=== PATIENT | female | born 1985 | race Caucasian/White ===

== ENCOUNTER 2018-03-10 09:33 | Day surgery (SDC) | payer OTHER ==
[2018-03-07 15:31] LABS: Urine Appearance CLEAR; Urine Bilirubin NEGATIVE (NEG); Urine Blood NEGATIVE (NEG); Urine Color YELLOW; Urine Glucose NEGATIVE (NEG); Urine Protein NEGATIVE (NEG); Urine pH 5.5 (5.0-7.0)
[2018-03-07 15:33] LABS: Absolute Lymphocytes (CBC) 2.3 K/uL (0.7-4.9); Absolute Monocytes 0.4 K/uL (0.1-1.3); Absolute Neutrophil 3.6 K/uL (1.8-8.0); Basophils % 0.8 % (0-1.3); Eosinophils % 0.8 % (0-4.4); Hematocrit 36.4 % (36.0-45.0); Lymphocytes % 35.9 % (15.3-44.8); MCH 30.4 pg (27.0-35.0); MCV 89.7 fL (80-100); MPV 9.2 fL (7.6-11.3); Monocytes % 5.5 % (3.3-12.3); RBC Red Blood Cell Count 4.05 M/uL (3.86-4.86)
[2018-03-07 15:37] LABS: Urine Microscopic Reflex NO UMIC
--- OUTSIDE RECORDS SUMMARY | 2018-03-10 09:39 | XMS REPORT | Continuity of Care Document ---
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, UNSPECIFIED" TIA Active [address] Arachnoid cyst Active Problem 05/07/2017 PADMINI Ed[place],[facility] Headache Active Problem 05/07/2017 OPID [place],[facility] Iron deficiency Active Problem 05/07/2017 OPID anemia [place],[facility] Multinodular Active Problem 05/07/2017 OPID thyroid [place],[facility] Cough Active Problem 05/07/2017 OPID [place],[facility] PFO (<span Active Problem 05/07/2017 [id number] [facility]Conf[facility]</spa [place] n>) [facility] Arachnoid cyst Active Problem 04/12/2017 OPID [place], [facility] [place] Headache Active Problem 04/12/2017 OPID [place], [facility] [place] Iron deficiency Active Problem 04/12/2017 OPID anemia [place], [facility] [place] Multinodular Active Problem 04/12/2017 OPID thyroid [place], [facility] [place] Cough Active Problem 04/12/2017 OPID [place], [facility] [place] PFO (<span Active Problem 04/12/2017 [facility] ID[facility][id number] [facility]Confirmed</spa OPID n>) [place] Arachnoid cyst Active Problem 05/22/2017 OPID [place],[facility] Headache Active Problem 05/22/2017 OPID [facility] Iron deficiency Active Problem 05/22/2017 OPID anemia [facility] Multinodular Active Problem 05/22/2017 OP[facility] thyroid [place] Cough Active Problem 05/22/2017 OPID [facility] PFO (<span Active Problem 05/22/2017 OPID ID="[id number] [place],Leta ">Confirmed</spa [facility] n>) OTHER SPECIFIED Active [facility] CONGENITAL Medical DEFORMITIES Center Medications Medication Details Route Status Patient Ordering Order Source Instructions Provider Date Oxycodone 5 mg, 1 tab, No Longer [facility] Route: PO, Drug Active 2016 Medical form: TAB, Q4H, Center Dosing Weight 57.273, kg, PRN Pain Score 4-6, Start date: 05/04/17 9:12:00 HEALTH PROMOTION OFFICER, Duration: 30 day, Stop date: 06/03/17 9:11:00 CSTNotes: (Same as: Roxicodone) Flumazenil 0.2 mg, 2 mL, No Longer [facility] Route: IVP, Drug Active 2016 Medical form: INJ, PRN, Center Dosing Weight 57.273, kg, PRN Benzodiazepine Reversal, Initial dose, Start date: 05/04/17 9:12:00 HEALTH PROMOTION OFFICER, Duration: 30 day, Stop date: 06/03/17 9:11:00 CSTNotes: (Same as: Romazicon) Ondansetron 4 mg, Route: Inactive 05/04[facility] IVP, ONCE, 2016 Medical Dosing Weight Center 57.273, kg, PRN Nausea & Vomiting, Start date: 05/04/17 9:12:00 HEALTH PROMOTION OFFICER Naloxone 0.4 mg, 1 mL, No Longer 05/04[facility] Route: IVP, Drug Active 2016 Medical form: INJ, Center Q2MIN, Dosing Weight 57.273, kg, PRN Narcotic Reversal, Start date: 05/04/17 9:12:00 HEALTH PROMOTION OFFICER, Duration: 8 doses or times, Stop date: Limited # of timesNotes: Same as Narcan Acetaminophen 1,000 mg, 2 tab, No Longer 05/04[facility] Route: PO, Drug Active 2016 Medical form: TAB, ONCE, Center Dosing Weight 57.273, kg, PRN Pain Score 1-3, Start date: 05/04/17 9:12:00 CSTNotes: Max acetaminophen 4000 mg/day (4 gm/day). (Same as: Tylenol Extra Strength) Ondansetron 4 MG 4 mg=1 tab, PO, Active [place] Oral Tablet Q6H, PRN 2017 Medical [Zofran] Nausea/Vomiting, Center # 30 tab, 0 Refill(s) tramadol 50 mg=1 tab, PO, Active [place] hydrochloride 50 Q6H, PRN Pain, X 2017 Medical MG Oral Tablet 10 day, # 40 Center tab, 0 Refill(s) Docusate Sodium 100 mg=1 cap, Active [place] 100 MG Oral PO, Daily, PRN 2017 Medical Capsule Constipation, # Center 20 cap, 0 Refill(s) ondansetron (ANES) Route: IV, Drug Inactive [place] form: INJ, ONCE, 2016 Medical Stop date: [place] 05/04/17 8:58:00 HEALTH PROMOTION OFFICER ceFAZolin (ANES) Route: IV, Drug Inactive [facility] form: INJ, ONCE, 2016 Medical Stop date: Center 05/04/17 8:58:00 HEALTH PROMOTION OFFICER Zofran 4 mg, 2 mL, No Longer [place] Route: IVP, Drug Active 2016 Medical form: INJ, Q8H, Center Dosing Weight 57.273, kg, PRN Nausea, Start date: 05/04/17 8:58:00 HEALTH PROMOTION OFFICER, Duration: 30 day, Stop date: 06/03/17 8:57:00 CSTNotes: (Same as: Zofran) MEDICATION WASTE Product Size: 4 mg Product Wasted: ___ mg Acetaminophen 325 2 tab, Route: No Longer [place] MG / Hydrocodone PO, Drug Form: Active 2016 Medical Bitartrate 5 MG TAB, Dosing Center Oral Tablet Weight 57.273, kg, Q4H, PRN Pain Score 4-6, Start date: 05/04/17 8:56:00 HEALTH PROMOTION OFFICER, Duration: 30 day, Stop date: 06/03/17 8:55:00 CSTNotes: (Same as: [place] 325/5) Do not exceed 4gm/day of acetaminophen. Hydromorphone 0.5 mg, Route: No Longer [place] IVP, Q4H, Dosing Active 2016 [facility] Weight 57.273, [place] kg, PRN Pain Score 4-6, Start date: 05/04/17 8:56:00 HEALTH PROMOTION OFFICER, Duration: 30 day, Stop date: 06/03/17 8:55:00 HEALTH PROMOTION OFFICER fentaNYL (ANES) Route: IV, Drug Inactive [place] form: INJ, ONCE, 2016 Medical Stop date: [place] 05/04/17 8:43:00 HEALTH PROMOTION OFFICER propofol (ANES) Route: IV, Drug Inactive [place] form: INJ, ONCE, 2016 Medical Stop date: [place] 05/04/17 8:43:00 HEALTH PROMOTION OFFICER lidocaine (ANES) Route: IV, Drug Inactive [place] form: INJ, ONCE, 2016 Medical Stop date: [place] 05/04/17 8:38:00 HEALTH PROMOTION OFFICER midazolam (ANES) Route: IV, Drug Inactive [place] form: SOLN, 2016 Medical ONCE, Stop date: [place] 05/04/17 8:13:00 HEALTH PROMOTION OFFICER propofol (ANES) 10 Route: IV, Drug Inactive [place] mg form: INJ, Start 2016 Medical date: 05/04/17 [place] 8:03:00 HEALTH PROMOTION OFFICER, Stop date: 05/04/17 9:03:00 HEALTH PROMOTION OFFICER Lactated Ringers Route: IV, Total Inactive [place] Injection IV Volume: 1,000, 2017 Medical (ANES) 1000 mL Start date: [place] 05/04/17 7:30:00 HEALTH PROMOTION OFFICER, Stop date: 05/04/17 8:30:00 HEALTH PROMOTION OFFICER ceFAZolin + 2 gm, Route: IV, No Longer [place] sterile water 20 PRE OP, Start Active 2016 Medical mL date: 05/04/17 [place] 2:00:00 HEALTH PROMOTION OFFICER, Duration: 30 day, Stop date: 06/03/17 1:59:00 HEALTH PROMOTION OFFICER, ABX Indication: Surgical ProphylaxisNotes : (Same As: Sugey Burr) MEDICATION WASTE Product Size: 1000 mg Product Wasted: ___ mg Docusate Sodium 100 mg=1 cap, Active [place] 100 MG Oral PO, BID, # 60 2016 [facility] Capsule [Colace] cap, 0 Refill(s) [place] tramadol 50 mg=1 tab, PO, No Longer [place] hydrochloride 50 Q8H, PRN Pain, # Active 2016 Medical MG Oral Tablet 60 tab, 0 Center Refill(s) [place] 5/325 oral 1 tab, PO, Q6H, Active [place] tablet # 60 tab, 0 2016 Medical Refill(s) Center influenza virus 0.5 mL, Route: No Longer [place] vaccine, IM, Daily, Start Active 2016 Medical inactivated date: 04/01/17 Center 9:00:00 CDT, Duration: 1 doses or times, Stop date: 04/01/17 9:00:00 CDT [place] 5/325 oral 1 tab, Route: No Longer [place] tablet PO, Drug Form: Active 2016 Medical TAB, Dosing Center Weight 61.818, kg, Q4H, Start date: 03/31/17 16:00:00 CDT, Duration: 30 day, Stop date: 04/30/17 12:00:00 CSTNotes: (Same as: [place] 325/5) Do not exceed 4gm/day of acetaminophen. heparin 5000 5,000 unit, 1 No Longer [place] units/mL mL, Route: Active 2016 [facility] injectable SUB-Q, Drug Center solution form: INJ, Q8H, Dosing Weight 61.818, kg, Start date: 03/31/17 16:00:00 CDT, Duration: 30 day, Stop date: 04/30/17 8:00:00 CSTNotes: porcine heparin acetaminophen-hydr 1 tab, PO, Q6H, No Longer [place] ocodone 325 mg-10 PRN Pain Score Active 2016 Medical mg oral tablet 4-6, # 60 tab, 0 Center Refill(s) Zofran 4 mg oral 4 mg=1 tab, PO, Active [place] tablet Q8H, PRN 2017 Medical Nausea/vomiting, Center # 30 tab, 0 Refill(s), Pharmacy: [facility]/pharmacy #[id number] senna 8.6 mg oral 17.2 mg=2 tab, Active [place] tablet PO, Bedtime, PRN 2017 Medical Constipation, X Center 10 day, # 20 tab, 0 Refill(s), Pharmacy: [facility]/pharmacy #[id number] magnesium citrate 8.725 eu=549 ml, Active [place] 1.745 g/30 mL oral PO, ONCE, if no 2017 Medical liquid bowel movement Center in couple days, # 300 ml, 0 Refill(s), Pharmacy: [facility]/pharmacy #[id number] Colace 100 mg oral 100 mg=1 cap, Active [place] capsule PO, BID, # 28 2017 Medical cap, 0 Center Refill(s), Pharmacy: [facility]/pharmacy #[id number] diazepam 5 mg oral 5 mg=1 tab, PO, Active [facility] tablet TID, PRN Spasm, 2017 Medical # 15 tab, 0 Center Refill(s) hydromorphone 0.2 mg, 0.1 mL, No Longer [facility] Route: IVP, Drug Active 2016 Medical form: INJ, Q3H, Center Dosing Weight 61.818, kg, PRN Pain Score 7-10, Start date: 03/31/17 10:13:00 CDT, Duration: 30 day, Stop date: 04/30/17 10:12:00 CSTNotes: Same as: Dilaudid Valium 5 mg, 1 tab, No Longer [place] Route: PO, Drug Active 2016 Medical form: TAB, TID, Center Dosing Weight 61.818, kg, PRN Spasm, Start date: 03/31/17 10:12:00 CDT, Duration: 30 day, Stop date: 04/30/17 10:11:00 CSTNotes: (Same as: Valium) hydromorphone 0.5 mg, 0.25 mL, Inactive [facility] Route: IV, Drug 2016 Medical form: INJ, ONCE, Center Dosing Weight 61.818, kg, Start date: 03/31/17 7:30:00 CDT, Stop date: 03/31/17 7:30:00 CDTNotes: Same as: Dilaudid Valium 5 mg, Route: IV, Inactive [place] ONCE, Dosing 2017 Medical Weight 61.818, Center kg, Start date: 03/31/17 6:58:00 CDT, Stop date: 03/31/17 6:58:00 CDT ceFAZolin (SCIP) + 2 gm, Route: No Longer [facility] sodium chloride IVPB, Drug form: Active 2017 Medical 0.9% INJ 100 mL INJ, ABXQ8H, Center Dosing Weight 61.818, kg, Start date: 03/30/17 22:00:00 CDT, Duration: 3 doses or times, Stop date: 03/31/17 14:00:00 CDT, ABX Indication: Surgical ProphylaxisNotes : (Same As: AncSugey nino) Cefazolin FOR IV SET ONLY MEDICATION WASTE Product Size: 1000 mg Product Wasted: _0__ mg Saline Flush 0.9% 10 ml, Route: No Longer [facility] IVP, Drug Form: Active 2017 Medical INJ, Dosing Center Weight 61.818, kg, Q12H, Start date: 03/30/17 21:00:00 CDT, Duration: 30 day, Stop date: 04/29/17 9:00:00 CSTNotes: (Same as: BD Posiflush) docusate 100 mg, 1 cap, No Longer [facility] Route: PO, Drug Active 2016 Medical form: CAP, Q12H, Center Dosing Weight 61.818, kg, Start date: 03/30/17 21:00:00 CDT, Duration: 30 day, Stop date: 04/29/17 9:00:00 CSTNotes: (Same as: Colace) senna 8.6 mg, 1 tab, No Longer [facility] Route: PO, Drug Active 2016 Medical Form: TAB, Center Dosing Weight 61.818, kg, Q12H, Start date: 03/30/17 21:00:00 CDT, Duration: 30 day, Stop date: 04/29/17 9:00:00 CSTNotes: (Same as: Senokot) metoclopramide 10 mg, 2 mL, No Longer [facility] Route: IVP, Drug Active 2016 Medical form: INJ, Q6H, Center Dosing Weight 61.818, kg, Start date: 03/30/17 18:00:00 CDT, Duration: 48 hr, Stop date: 04/01/17 12:00:00 CDTNotes: (Same as: Reglan) Saline Flush 0.9% 10 ml, Route: No Longer [place] IVP, Drug Form: Active 2016 Medical INJ, Dosing Center Weight 61.818, kg, PRN, PRN Line Flush, Start date: 03/30/17 17:42:00 CDT, Duration: 30 day, Stop date: 04/29/17 16:41:00 CSTNotes: (Same as: BD Posiflush) morphine Sulfate 2 mg, 0.5 mL, No Longer [place] Route: IVP, Drug Active 2016 Medical form: SOLN, Q2H, Center Dosing Weight 61.818, kg, PRN Pain Score 7-10, Start date: 03/30/17 17:42:00 CDT, Duration: 30 day, Stop date: 04/29/17 17:41:00 CSTNotes: (Same as:MORPhine Sulfate) acetaminophen-hydr 1 tab, Route: No Longer [place] ocodone 325 mg-10 PO, Drug Form: Active 2016 Medical mg oral tablet TAB, Dosing Center Weight 61.818, kg, Q4H, PRN Pain Score 4-6, Start date: 03/30/17 17:42:00 CDT, Duration: 30 day, Stop date: 04/29/17 17:41:00 CSTNotes: (Same as: [place] 325/10) ondansetron 4 mg, 2 mL, No Longer [place] Route: IVP, Drug Active 2016 Medical form: INJ, Q8H, Center Dosing Weight 61.818, kg, PRN Nausea & Vomiting, Start date: 03/30/17 17:42:00 CDT, Duration: 30 day, Stop date: 04/29/17 17:41:00 CSTNotes: (Same as: Zofran) MEDICATION WASTE Product Size: 4 mg Product Wasted: _0__ mg sodium chloride 1,000 mL, Rate: No Longer [place] 0.9% 1000 ml INJ 100 ml/hr, Active 2016 Medical 1,000 mL Infuse over: 10 Center hr, Route: IV, Dosing Weight 61.818 kg, Total Volume: 1,000, Start date: 03/30/17 17:42:00 CDT, Stop date: 04/29/17 17:41:00 HEALTH PROMOTION OFFICER hydromorphone Route: IV, Drug Inactive [facility] (ANES) form: INJ, ONCE, 2016 Medical Stop date: [place] 03/30/17 17:04:00 CDT ondansetron (ANES) Route: IV, Drug Inactive [place] form: INJ, ONCE, 2016 Medical Stop date: [place] 16:30:00 CDT famotidine (ANES) Route: IV, Drug Inactive [place] form: INJ, ONCE, 2016 Medical Stop date: [place] 16:30:00 CDT glycopyrrolate Route: IV, Drug Inactive [place] (ANES) form: INJ, ONCE, 2016 Medical Stop date: [place] 03/30/17 15:20:00 CDT ePHEDrine (ANES) Route: IV, Drug Inactive [place] form: INJ, ONCE, 2016 Medical Stop date: [place] 03/30/17 13:55:00 CDT ceFAZolin (ANES) Route: IV, Drug Inactive [place] form: INJ, ONCE, 2016 Medical Stop date: [place] 03/30/17 13:55:00 CDT propofol (ANES) Route: IV, Drug Inactive [facility] form: INJ, ONCE, 2016 Medical Stop date: [place] 03/30/17 13:25:00 CDT lidocaine (ANES) Route: IV, Drug Inactive [place] form: INJ, ONCE, 2016 Medical Stop date: [place] 03/30/17 13:25:00 CDT rocuronium (ANES) Route: IV, Drug Inactive [facility] form: INJ, ONCE, 2016 Medical Stop date: [place] 03/30/17 13:25:00 CDT fentaNYL (ANES) Route: IV, Drug Inactive [facility] form: INJ, ONCE, 2016 Medical Stop date: [place] 03/30/17 13:25:00 CDT ANES esmolol 10 mg, 1 mL, Inactive [facility] Route: IVP, Drug 2016 Medical form: INJ, Center Q5Min, Dosing Weight 61.818, kg, PRN Other -See Comment, Start date: 03/30/17 13:22:00 CDT, Duration: 5 doses or times, Stop date: 03/31/17 0:00:00 CDTNotes: (Same as: Brevibloc) ANES acetaminophen 1,000 mg, 2 tab, Inactive [facility] Route: PO, Drug 2016 Medical form: TAB, ONCE, Center Dosing Weight 61.818, kg, PRN Pain Score 1-3, Start date: 03/30/17 13:22:00 CDT, Duration: 1 doses or times, Stop date: Limited # of timesNotes: Max acetaminophen 4000 mg/day (4 gm/day). (Same as: Tylenol Extra Strength) ANES fentaNYL 25 microgram, Inactive [facility] 0.5 mL, Route: 2017 Medical IVP, Drug form: Center INJ, Q5Min, Dosing Weight 61.818, kg, PRN Pain Score 4-6, Priority: Routine, Start date: 03/30/17 13:22:00 CDT, Duration: 4 doses or times, Stop date: 03/31/17 0:00:00 CDTNotes: (Same as: Sublimaze) Preservative free. ANES HYDROmorphone 0.5 mg, 0.25 mL, Inactive [facility] Route: IVP, Drug 2016 Medical form: INJ, Center Q5Min, Dosing Weight 61.818, kg, PRN Pain Score 7-10, Start date: 03/30/17 13:22:00 CDT, Duration: 4 doses or times, Stop date: 03/31/17 0:00:00 CDTNotes: Same as: Dilaudid ANES flumazenil 0.2 mg, 2 mL, Inactive [facility] Route: IVP, Drug 2016 Medical form: INJ, PRN, Center Dosing Weight 61.818, kg, PRN Benzodiazepine Reversal, Initial dose, Start date: 03/30/17 13:22:00 CDT, Duration: 30 day, Stop date: 04/29/17 12:21:00 CSTNotes: (Same as: Romazicon) ANES naloxone 0.4 mg, 1 mL, Inactive [facility] Route: IVP, Drug 2016 Medical form: INJ, Center Q2MIN, Dosing Weight 61.818, kg, PRN Narcotic Reversal, Start date: 03/30/17 13:22:00 CDT, Duration: 8 doses or times, Stop date: 03/31/17 0:00:00 CDTNotes: Same as Narcan ANES ondansetron 4 mg, 2 mL, Inactive [facility] Route: IVP, Drug 2016 Medical form: INJ, ONCE, Center Dosing Weight 61.818, kg, PRN Nausea & Vomiting, Start date: 03/30/17 13:22:00 CDTNotes: (Same as: Zofran) MEDICATION WASTE Product Size: 4 mg Product Wasted: ___ mg ANES promethazine 6.25 mg, 0.25 Inactive [place] mL, Route: IVPB, 2016 Medical Drug form: INJ, Center ONCE, Dosing Weight 61.818, kg, PRN Nausea & Vomiting, Start date: 03/30/17 13:22:00 CDTNotes: Do not give IV push. (Same as: Phenergan) acetaminophen Route: IV, Drug Inactive [facility] (ANES) (ANES) form: INJ, Start 2016 Medical date: 03/30/17 Center 12:50:00 CDT, Stop date: 03/30/17 13:50:00 CDT Isolyte S (PH 7.4) Route: IV, Total Inactive [place] 1000 mL (ANES) Volume: 1,000, 2016 Medical Start date: [place] 03/30/17 12:49:00 CDT, Stop date: 03/30/17 13:49:00 CDT ceFAZolin 2 gm, 100 mL, No Longer [facility] Route: IVPB, Active 2016 Medical Drug form: INJ, Center PRE OP, Start date: 03/29/17 23:00:00 CDT, Duration: 1 day, Stop date: 03/30/17 22:59:00 CDT, ABX Indication: Surgical ProphylaxisNotes : Same as: Ancef Ondansetron 4 MG 4 mg=1 tab, PO, Active [place] Oral Tablet Q8H, # 60 tab, 0 2015 Medical [Zofran] Refill(s) Center Acetaminophen 300 1 tab, PO, Q4H, Inactive [place] MG / Codeine PRN for pain, # 2016 Medical Phosphate 30 MG 60 tab, 0 Center Oral Tablet Refill(s) [Tylenol with Codeine #3] Docusate Sodium 100 mg=1 cap, Active [place] 100 MG Oral PO, Q12H, # 30 2016 Medical Capsule cap, 0 Refill(s) Center tramadol 50 mg=1 tab, PO, Active [place] hydrochloride 50 Q4H, PRN Pain, X 2016 Medical MG Oral Tablet 10 day, # 60 Center tab, 0 Refill(s) Saline Flush 0.9% 10 ml, Route: No Longer [place] IVP, Drug Form: Active 2015 Medical INJ, Dosing Center Weight 59.091, kg, Q12H, Start date: 04/20/16 21:00:00 HEALTH PROMOTION OFFICER, Duration: 30 day, Stop date: 05/20/16 9:00:00 CSTNotes: (Same as: BD Posiflush) Famotidine 20 mg, 1 tab, No Longer Route: PO, Drug Active 2015 Medical form: TAB, Q12H, Center Dosing Weight 59.091, kg, Start date: 04/20/16 21:00:00 HEALTH PROMOTION OFFICER, Duration: 30 day, Stop date: 05/20/16 9:00:00 CSTNotes: (Same as: Pepcid) Docusate 100 mg, 1 cap, No Longer [place] Route: PO, Drug Active 2015 Medical form: CAP, Q12H, Center Dosing Weight 59.091, kg, Start date: 04/20/16 21:00:00 HEALTH PROMOTION OFFICER, Duration: 30 day, Stop date: 05/20/16 9:00:00 CSTNotes: (Same as: Colace) (Do Not Crush) sennosides, [facility] 8.6 mg, 1 tab, No Longer [place] Route: PO, Drug Active 2015 Medical Form: TAB, Center Dosing Weight 59.091, kg, Q12H, Start date: 04/20/16 21:00:00 HEALTH PROMOTION OFFICER, Duration: 30 day, Stop date: 05/20/16 9:00:00 CSTNotes: (Same as: Senokot) ceFAZolin (SCIP) 1 gm, Route: No Longer [place] IVPB, Drug form: Active 2016 Medical PDR/INJ, ABXQ8H, Center Dosing Weight 59.091, kg, Start date: 04/20/16 16:00:00 HEALTH PROMOTION OFFICER, Duration: 3 doses or times, Stop date: 04/21/16 8:00:00 CSTNotes: (Same As: Sugey Burr) MEDICATION WASTE Product Size: 1000 mg Product Wasted: ___ mg Acetaminophen 325 1 tab, Route: No Longer [place] MG / Hydrocodone PO, Drug Form: Active 2015 Medical Bitartrate 10 MG TAB, Dosing Center Oral Tablet [[place] Weight 59.091, 10/325] kg, Q4H, Start date: 04/20/16 12:00:00 HEALTH PROMOTION OFFICER, Duration: 30 day, Stop date: 05/20/16 8:00:00 CSTNotes: Do not exceed 4gm/day of acetaminophen. (Same as: [place] 325/10) Dexamethasone 4 mg, 1 tab, No Longer [place] Route: PO, Drug Active 2015 Medical form: TAB, Q6H, Center Dosing Weight 59.091, kg, Start date: 04/20/16 12:00:00 HEALTH PROMOTION OFFICER, Duration: 30 day, Stop date: 05/20/16 6:00:00 CSTNotes: Give with food. (Same As: Decadron) Dextrose 50% 25 gm, 50 mL, No Longer [facility] Syringe Route: IVP, Drug Active 2015 Medical Form: INJ, Center Dosing Weight 59.091, kg, PRN, PRN Abnormal Lab Result, Start date: 04/20/16 11:00:00 HEALTH PROMOTION OFFICER, Duration: 30 day, Stop date: 05/20/16 10:59:00 HEALTH PROMOTION OFFICER Regular Insulin, 7 unit, 0.07 mL, No Longer [place] Human 100 UNT/ML Route: SUB-Q, Active 2015 Medical Injectable Drug form: SOLN, Center Solution PRN, Dosing Weight 59.091, kg, PRN Abnormal Lab Result, Start date: 04/20/16 11:00:00 HEALTH PROMOTION OFFICER, Duration: 30 day, Stop date: 05/20/16 10:59:00 CSTNotes: (Same as: Humulin R) Roll in palms of hands gently; Do not shake vigorously. "single patient use only" (Restricted to patients requiring a dose > 60 units) WASTE: F/P - Black; E - Municipal Trash Bin Stable for 28 days at room temperature Expires in days from Da te Saline Flush 0.9% 10 ml, Route: No Longer [place] IVP, Drug Form: Active 2015 Medical INJ, Dosing Center Weight 59.091, kg, PRN, PRN Line Flush, Start date: 04/20/16 11:00:00 HEALTH PROMOTION OFFICER, Duration: 30 day, Stop date: 05/20/16 10:59:00 CSTNotes: (Same as: BD Posiflush) Dilaudid 0.5 mg, 0.25 mL, No Longer [place] Route: IV, Drug Active 2015 Medical form: INJ, Q3H, Center Dosing Weight 59.091, kg, PRN Pain Score 7-10, Start date: 04/20/16 11:00:00 HEALTH PROMOTION OFFICER, Duration: 30 day, Stop date: 05/20/16 10:59:00 CSTNotes: Same as Dilaudid Ondansetron 4 mg, 2 mL, No Longer [place] Route: IVP, Drug Active 2015 Medical form: INJ, Q8H, Center Dosing Weight 59.091, kg, PRN Nausea & Vomiting, Start date: 04/20/16 11:00:00 HEALTH PROMOTION OFFICER, Duration: 30 day, Stop date: 05/20/16 10:59:00 CSTNotes: (Same as: Noel) MEDICATION WASTE Product Size: 4 mg Product Wasted: ___ mg Metoclopramide 10 mg, 2 mL, No Longer [place] Route: IVP, Drug Active 2015 Medical form: INJ, Q6H, Center Dosing Weight 59.091, kg, PRN as needed for nausea/vomiting, Start date: 04/20/16 11:00:00 HEALTH PROMOTION OFFICER, Duration: 30 day, Stop date: 05/20/16 10:59:00 CSTNotes: (Same as: Reglan) Sodium Chloride 1,000 mL, Rate: No Longer [place] 0.154 MEQ/ML 50 ml/hr, Infuse Active 2015 Medical Injectable over: 20 hr, Center Solution Route: IV, Dosing Weight 59.091 kg, Total Volume: 1,000, Start date: 04/20/16 11:00:00 HEALTH PROMOTION OFFICER, Stop date: 05/20/16 10:59:00 HEALTH PROMOTION OFFICER Acetaminophen 325 1 tab, Route: No Longer [facility] MG / Hydrocodone PO, Drug Form: Active 2016 Medical Bitartrate 10 MG TAB, Dosing Center Oral Tablet Weight 59.091, kg, Q4H, PRN Pain Score 4-6, Start date: 04/20/16 11:00:00 HEALTH PROMOTION OFFICER, Duration: 30 day, Stop date: 05/20/16 10:59:00 CSTNotes: Do not exceed 4gm/day of acetaminophen. (Same as: [place] 325/10) Promethazine 6.25 mg, Route: Inactive [place] IVPB, ONCE, 2015 Medical Dosing Weight Center 57.727, kg, PRN Nausea & Vomiting, Start date: 04/20/16 7:17:00 HEALTH PROMOTION OFFICER Ondansetron 4 mg, 2 mL, Inactive [facility] Route: IVP, Drug 2015 Medical form: INJ, ONCE, Center Dosing Weight 57.727, kg, PRN Nausea & Vomiting, Start date: 04/20/16 7:17:00 CSTNotes: (Same as: Zofran) MEDICATION WASTE Product Size: 4 mg Product Wasted: ___ mg Flumazenil 0.2 mg, 2 mL, Inactive [facility] Route: IVP, Drug 2015 Medical form: INJ, PRN, Center Dosing Weight 57.727, kg, PRN Benzodiazepine Reversal, Initial dose, Start date: 04/20/16 7:17:00 HEALTH PROMOTION OFFICER, Duration: 30 day, Stop date: 05/20/16 7:16:00 CSTNotes: (Same as: Romazicon) Naloxone 0.4 mg, 1 mL, Inactive [facility] Route: IVP, Drug 2015 Medical form: INJ, Center Q2MIN, Dosing Weight 57.727, kg, PRN Narcotic Reversal, Start date: 04/20/16 7:17:00 HEALTH PROMOTION OFFICER, Duration: 8 doses or times, Stop date: 04/21/16 0:00:00 CSTNotes: Same as Narcan Ephedrine 5 mg, Route: Inactive [facility] IVP, Q5Min, 2015 Medical Dosing Weight Center 57.727, kg, PRN Low Blood Pressure, Start date: 04/20/16 7:17:00 HEALTH PROMOTION OFFICER, Duration: 30 day, Stop date: 05/20/16 7:16:00 HEALTH PROMOTION OFFICER Hydromorphone 0.5 mg, 0.25 mL, Inactive [facility] Route: IVP, Drug 2015 Medical form: INJ, Center Q5Min, Dosing Weight 57.727, kg, PRN Pain Score 7-10, Start date: 04/20/16 7:17:00 HE[employer]OMOTION OFFICER, Duration: 4 doses or times, Stop date: 04/21/16 0:00:00 CSTNotes: Same as Dilaudid Labetalol 10 mg, Route: Inactive [facility] IVP, Q5Min, 2015 Medical Dosing Weight Center 57.727, kg, PRN Elevated BP, Start date: 04/20/16 7:17:00 HEALTH PROMOTION OFFICER, Duration: 5 doses or times, Stop date: Limited # of times Metoprolol 1 mg, Route: Inactive [facility] IVP, Q5Min, 2015 Medical Dosing Weight Center 57.727, kg, PRN Other -See Comment, Start date: 04/20/16 7:17:00 HEALTH PROMOTION OFFICER, Duration: 5 doses or times, Stop date: Limited # of times esmolol 10 mg, Route: Inactive [facility] IVP, Q5Min, 2015 Medical Dosing Weight Center 57.727, kg, PRN Other -See Comment, Start date: 04/20/16 7:17:00 HEALTH PROMOTION OFFICER, Duration: 5 doses or times, Stop date: Limited # of times Hydralazine 10 mg, Route: Inactive [facility] IVP, Q20Min, 2015 Medical Dosing Weight Center 57.727, kg, PRN Elevated BP, Start date: 04/20/16 7:17:00 HEALTH PROMOTION OFFICER, Duration: 2 doses or times, Stop date: Limited # of times ceFAZolin 2 gm, 100 mL, Inactive [facility] Route: IVPB, 2015 Medical Drug form: INJ, Center PRE OP, Start date: 04/20/16 1:00:00 HEALTH PROMOTION OFFICER, Duration: 1 day, Stop date: 04/21/16 0:59:00 CSTNotes: Same as: Ancef Sulfamethoxazole 1 tab, PO, Q12H, Active Xavier 800 MG / X 3 day, # 6 2016 Medical Trimethoprim 160 tab, 0 Refill(s) Center MG Oral Tablet [Bactrim] Plavix 75 mg, 1 tab, Inactive [facility] Route: PO, Drug 2015 Medical form: TAB, Center Daily, Dosing Weight 59.091, kg, Start date: 03/24/16 9:00:00 CDT, Duration: 30 day, Stop date: 04/22/16 9:00:00 CSTNotes: (Same As: Plavix) Sodium Chloride 500 mL, 500 Inactive Xavier 0.154 MEQ/ML ml/hr, Infuse 2016 Medical Injectable Over: 1 hr, [place] Solution Route: IV, 500, Drug form: INJ, ONCE, Priority: STAT, Dosing Weight 59.091 kg, Start date: 03/24/16 7:00:00 CDT, Duration: 1 doses or times, Stop date: 03/24/16 7:00:00 CDT Aspirin 81 mg, 1 tab, No Longer [facility] Route: PO, Drug Active 2015 Medical form: ECTAB, Center Daily, kg, Start date: 03/23/16 17:00:00 CDT, Duration: 30 day, Stop date: 04/22/16 9:00:00 CSTNotes: Do not crush or chew. (Same As: Ecotrin) influenza virus 0.5 mL, Route: Inactive Xavier vaccine, IM, Drug Form: 2016 Medical inactivated SUSP, Daily, Center Start date: 03/23/16 9:00:00 CDT, Duration: 1 doses or times, Stop date: 03/23/16 9:00:00 CDTNotes: (Same as: Fluzone Quadrivalent, Fluarix Quadrivalent) For 3 years of age and older (0.5 mL IM) Shake well before use Saline Flush 0.9% 10 ml, Route: No Longer Xavier IVP, Drug Form: Active 2015 Medical INJ, kg, Q12H, Center Start date: 03/23/16 9:00:00 CDT, Duration: 30 day, Stop date: 04/21/16 21:00:00 CSTNotes: (Same as: BD Posiflush) Sulfamethoxazole 1 tab, Route: No Longer [place] 800 MG / PO, Drug Form: Active 2015 Medical Trimethoprim 160 TAB, Dosing Center MG Oral Tablet Weight 59.091, [Bactrim] kg, Q12H, Start date: 03/23/16 9:00:00 CDT, Duration: 3 day, Stop date: 03/25/16 21:00:00 CDTNotes: One DS tablet=trimethop rim 160mg + sulfamethoxazole 800 mg Dose based on trimethoprim component On empty stomach with a glass of water. 1 hr before meals (Same As: Bactrim DS, Septra DS) Ceftriaxone 1 gm, Route: No Longer [place] IVPB, Drug form: Active 2015 Medical PDR/INJ, Center [id number], Dosing Weight 59.091, kg, Start date: 03/23/16 7:00:00 CDT, Duration: 3 day, Stop date: 03/25/16 7:00:00 CDTNotes: (Same As: Rocephin). Use with 100 mL NS and infuse over 30 min MEDICATION WASTE Product Size: 1000 mg Product Wasted: ___ mg Ceftriaxone 1 gm, Route: Inactive [place] IVPB, Drug form: 2015 Medical PDR/INJ, Center [id number], Dosing Weight 59.091, kg, Start date: 03/23/16 6:10:00 CDT, Duration: 30 day, Stop date: 04/21/16 6:10:00 HEALTH PROMOTION OFFICER Tylenol 650 mg, 2 tab, No Longer [place] Route: PO, Drug Active 2015 Medical form: TAB, Q6H, Center Dosing Weight 59.091, kg, PRN Pain Score 1-3, Start date: 03/23/16 5:03:00 CDT, Duration: 30 day, Stop date: 04/22/16 5:02:00 CSTNotes: Do not exceed 4 gm/day. (Same as: Tylenol) Iron Chews 15 mg, PO, Active [place] Daily, 0 2015 Medical Refill(s) Center NuvaRing 1 ea, VAG, q4wk, Active [facility] 0 Refill(s) 2015 [facility] Iohexol 60 mL, Route: Inactive [place] IVP, Drug Form: 2015 Medical SOLN, Dosing Center Weight 59.091, kg, ONCALL, STAT, Start date: 03/23/16 2:41:00 CDT, Duration: 1 doses or times, Dose=2.2ml/kg, Max iwhr=217mc -- "To be infused by Radiology Staff ONLY" Iohexol 60 mL, Route: Inactive [place] [facility], [facility] Weight 59.091, kg, ONCALL, STAT, Start date: 03/23/16 1:42:00 CDT, Duration: 1 doses or times, Dose=2.2ml/kg, Max btcz=[id number] -- "To be infused by Radiology Staff ONLY"Notes: (same as:Omnipaque 350). WASTE: F/P - Black; E - [employer] Aspirin 81 mg, 1 tab, No Longer [place] Route: PO, Drug Active 2015 Medical form: [place], [place] ONCE, kg, Start date: 03/22/16 23:41:00 CDT, Stop date: 03/22/16 23:41:00 CDTNotes: Take with food. Saline Flush 0.9% 10 ml, Route: No Longer [place] IVP, Drug Form: Active 2015 Medical INJ, kg, PRN, [place] PRN Line Flush, Start date: 03/22/16 22:39:00 CDT, Duration: 30 day, Stop date: 04/21/16 21:38:00 CSTNotes: (Same as: BD Posiflush) Allergies, Adverse Reactions, Alerts Substance Category Reaction Severity Reaction Status Date Comments Source type Reported codeine Assertion Drug Active [facility] allergy Neuro NSAIDs Assertion Acetaminoph Drug Active [facility]ischer en/Codeine allergy Neuro Phosphate,1 20 MG/5 ML-12 MG/5 ML,Oral (systemic), elixir, Acetaminoph en/Codeine Phosphate,1 20 MG/5 ML-12 MG/5 ML,Oral (systemic), elixir, Acetaminoph en/Codeine Phosphate,1 20 MG/5 ML-12 MG/5 ML,Oral (systemic), elixir, Acetaminoph en/Codeine Phosphate,1 20 MG/5 ML-12 MG/5 ML,Oral (systemic), elixir, Acetaminoph en/Codeine Phosphate,1 20 MG/5 ML-12 MG/5 ML,Oral (systemic), elixir, Acetaminoph en/Codeine Phosphate,1 20 MG/5 ML-12 MG/5 ML,Oral (systemic), elixir, Acetaminoph en/Codeine Phosphate,1 20 MG/5 ML-12 MG/5 ML,Oral (systemic), elixir, Acetaminoph en/Codeine Phosphate,1 20 MG/5 ML-12 MG/5 ML,Oral (systemic), elixir, Acetaminoph en/Codeine Phosphate,1 20 MG/5 ML-12 MG/5 ML,Oral (systemic), elixir, Acetaminoph en/Codeine Phosphate,1 20 MG/5 ML-12 MG/5 ML,Oral (systemic), elixir Immunizations Immunization Date Site Status Last Comments Source Given Updated influenza virus Right completed [place] OPID vaccine, 6 deltoid [place], inactivated [facility] influenza virus Right completed [place] OPID vaccine, 6 deltoid [place], inactivated OP[facility] [place] influenza virus Right completed [place] OPID vaccine, 6 deltoid [place], inactivated [facility] [place],Misc her Neuro Results Order Name Results Value Reference Date Interpretation Comments Source Range Brain w/wo Brain w/wo Patient Name: SUDHEER REYES 01/18 - OPID contrast contrast MRI /2017 - [place] [facility] : 1985; Age: 32 years y/o Female [place] MR: [id number] Read by: Jay Pope MD Dictated Date/time: 01/18/18 16:57 Electronically Signed by: Jay Pope MD 01/18/18 17:11 FINAL REPORT Study: Brain w/wo contrast MRI 01/18/2018 10:21 AM CDT Ordering Physician: Dell Josue MD Clinical Indication: - arachnoid cyst; Comparison: February 24, 2017 MRI and April 09, 2017 CT TECHNIQUE : Multiplanar imaging of the brain was obtained both prior to and after uncomplicated IV administration of 13 cc Dotarem FINDINGS: Sec Accountant artifact related to the shunt pontine the right occipital area limits evaluation, especially on diffusion-weighted and gradient echo images. BRAIN PARENCHYMA: Cerebellar tonsillar ectopia measures up to 7 mm consistent with Chiari I malformation. The difference compared to prior exam is probably related to changes in sequence Nguyen on the s agittal images. Right CP angle extra-axial fluid collection possibly due to an arachnoid cyst has not significantly changed, this measures approximately 3.6 x 1.9 cm in maximal axial dimensions. Minimal anterior bowing of cranial nerves VII and VIII cisternal portion again noted. The right suboccipital shunt catheter is better seen on CT, with the tip in the right infratentorial region transversely ov er the top of the presumed arachnoid cyst.. The brain parenchyma has normal signal with normal luo-white junction, sulci, and gyri. No restricted diffusion is identified. There is no mass effect or midline shift. There is no extra-axial fluid collection or intraparenchymal hemorrhage. There is no abnormal enhancement. CEREBELLOPONTINE REGIONS AND SKULL BASE significant: The cerebellopontine angles appear unremarkable. No skull base abnormality is seen. VENTRICLES/SULCI/CISTERNS: The ventricles are otherwise normal in size and configuration. The basal cisterns are patent. VISUALIZED VESSELS: Major intracranial flow voids are preserved. ORBITS, VISUALIZED PARANASAL SINUSES AND MASTOIDS: Paranasal sinuses are clear. The mastoid air cells are clear. No orbital pathology is seen. Severe leftward nasal spurring of 8 mm contacts and remod els the left middle and inferior turbinate. This is a potential source of headaches in some patients. 01/18/2018 IMPRESSION: 1. The degree of cerebellar tonsillar ectopia appears greater in today's exam though this is probably related to technical differences with the prior study. On today's exam, there appears to be Chiari I malformation. 2. Otherwise grossly stable exam, including right CP angle arachnoid cyst with right posterior fossa ventriculostomy catheter. 3. Severe nasal septal spurring is potential source of headaches. Brain wo Brain wo Study: Brain wo contrast CT 04/09 - OPID contrast CT contrast CT /2016 [facility] Clinical Indication: - cerebral cyst Read by: Mil Johnson MD Dictated Date/time: 04/09/17 14:30 Electronically Signed by: Mil Johnson MD 04/09/17 14:35 FINAL REPORT Comparison: MRI of the brain from 02/24/2017, 06/02/2016, 03/31/2016. CT of the brain from 07/22/2016. TECHNIQUE: Multiple axial CT images of the brain were acquired without the administration of intravenous contrast. Coronal and sagittal reconstructions were obtained. CT radiation dose DLP: 974.94 mGy-cm FINDINGS: Postoperative changes of right retrosigmoid craniotomy are seen with interval placement of a new ventriculostomy catheter with tip terminating along the region of the right cerebellopontine angle. Again noted is CSF attenuation fluid along the right cerebellopontine angle cistern measuring 1.8 x 4 cm axial dimension, grossly stable. Cerebellar tonsils at the level of the foramen magnum are again noted . No acute intracranial hemorrhage or midline shift is seen. The visualized paranasal sinuses and mastoid air cells are well aerated. IMPRESSION: 1. Postoperative changes of right retrosigmoid craniotomy and placement of a new ventriculostomy catheter with tip terminating along the region of the right cerebellopontine angle. 2. Stable appearance of a CSF attenuation fluid collection along the right cerebellopontine angle cistern measuring 1.8 x 4 cm axial dimension. 3. No acute intracranial hemorrhage. SL: [id number] BLOOD BANK Antibody Negative 03/30 [facility] RESULTS Scr [facility] (03/30/17 11:37 AM) [place] BLOOD BANK ABO/Rh O NEG 03/30 [facility] /2016 [facility] ELECTROLYTE Sodium Lvl 143 meq/L 135 - 145 03/24 [facility] S /2016 [facility] ELECTROLYTE Creatinine 0.64 mg/dL 0.50 - 03/24 [facility] Lvl 1.40 [facility] ELECTROLYTE BUN 15 mg/dL 7 - 22 03/24 [facility] /2016 [facility] ELECTROLYTE Potassium 4.9 meq/L 3.5 - 5.1 03/24 [facility] ELECTROLYTE Calcium Lvl 9.5 mg/dL 8.5 - 10.5 03/24 [facility] /2016 [facility] ELECTROLYTE CO2 30 meq/L 24 - 32 03/24 [facility] ELECTROLYTE Chloride Lvl 107 meq/L 95 - 109 03/24 [facility] ELECTROLYTE Glucose Lvl 78 mg/dL 70 - 99 03/24 [facility] ELECTROLYTE eGFR 119 03/24 Result Comment: The eGFR is calculated using the CKD-EPI formula. In most young, healthy individuals the eGFR will be > 90 mL/min/1.73m2. The eGFR declines with age. An eGFR of 60-89 [address] normal in [facility] mL/min/1.7 some populations, particularly the elderly, for whom the CKD-EPI formula has not been extensively validated. Use of the eGFR is not recommended in the following populations: [address] Individuals with unstable creatinine concentrations, including patients and those with serious co-morbid conditions. Patients with extremes in muscle mass or diet. The data above are obtained from the National Kidney Disease Education Program (NKDEP) which additionally recommends that when the eGFR is used in patients with extremes of body mass index for purposes of drug dosing, the eGFR should be multiplied by the estimated BMI. ELECTROLYTE AGAP 10.9 meq/L 10.0 - 03/24 [facility] S 20.0 [facility] HEMATOLOGY WBC 8.9 K/CMM 3.7 - 10.4 03/24 [facility] HEMATOLOGY RBC 4.16 M/CMM 4.20 - 03/24 [facility] 5.40 [facility] HEMATOLOGY RDW 12.8 % 11.5 - 03/24 [place] 14. [facility] HEMATOLOGY MPV 9.4 fL 7.4 - 10.4 03/24 [facility] HEMATOLOGY Platelet 278 K/CMM 133 - 450 03/24 [facility] HEMATOLOGY Hgb 12.8 g/dL 12.0 - 03/24 [place] 16.0 [facility] HEMATOLOGY MCH 30.7 pg 27.0 - 03/24 [place] 31.0 [facility] HEMATOLOGY Hct 37.4 % 36.0 - 03/24 [place] 48.0 [facility] HEMATOLOGY MCV 89.8 fL 80.0 - 03/24 [place] 98.0 [facility] HEMATOLOGY MCHC 34.2 g/dL 32.0 - 03/24 [place] 36.0 [facility] HEMATOLOGY Lymphocytes 2.5 K/CMM 1.0 - 5.5 03/24 [place] /2017 [facility] HEMATOLOGY Monocytes # 0.7 K/CMM 0.0 - 0.8 03/24 [facility] HEMATOLOGY Eosinophils 0.1 K/CMM 0.0 - 0.5 03/24 [facility] HEMATOLOGY Basophils # 0.1 K/CMM 0.0 - 0.2 03/24 [facility] HEMATOLOGY Basophils 0.7 % 0.0 - 1.0 03/24 [facility] HEMATOLOGY Segs-Bands # 5.6 K/CMM 1.5 - 8.1 03/24 [facility] HEMATOLOGY Segs 62.5 % 45.0 - 03/24 [place] 75.0 [facility] HEMATOLOGY Lymphocytes 27.6 % 20.0 - 03/24 [place] 40.0 [facility] HEMATOLOGY Eosinophils 0.9 % 0.0 - 4.0 03/24 [facility] HEMATOLOGY Monocytes 8.3 % 2.0 - 12.0 03/24 [facility] Brain w/wo Brain w/wo 02/24 - [facility] contrast contrast MRI /2016 [facility] MRI EXAMINATION: MRI brain with and without contrast Read by: Alek Guardado MD Dictated Date/time: 02/24/17 16:05 Electronically Signed by: Alek Guardado MD 02/24/17 16:15 FINAL REPORT DATE: 02/24/2017 INDICATION: Arachnoid cyst. FINDINGS: Multiplanar MRI images the brain are performed both before and after intravenous administration of 11 mL Dotarem gadolinium contrast. Comparison is made to studies dated 06/02/2016, 03/31/2016, and 03/23/2016 Over the most recent interval, there is been no important change. There is prominent CSF space in the right CP angle cistern and anterior to the right cerebellar hemisphere. Distortion in the contour of the 7th and 8th nerves present on the preoperative exam of 03/31/2016 is no longer present, but there is some persistent distortion of the fourth ventricular contour. Postoperative changes of retromast oid anatomy again noted, unremarkable in appearance. The cerebellar tonsils lie just at the foramen magnum, unchanged exams. The remainder the brain is unremarkable and stable in appearance. The paranasal sinuses and mastoids are clear. There is some mild deviation of the nasal septum to the left with left-sided nasal stenosis. Contrast images demonstrate no abnormal enhancement. IMPRESSION: Stable postoperative exam. Brain wo Brain wo EXAM: CT BRAIN WITHOUT CONTRAST 07/[address] CT /2016 - [facility] INDICATION: ARACHNOID CYST Read by: Jaky Centeno MD Dictated Date/time: 07/22/16 13:53 Electronically Signed by: Jaky Centeno MD 07/22/16 13:57 FINAL REPORT COMPARISON: MRI 06/02/2016 TECHNIQUE: Routine axial CT images of the brain were obtained. DISCUSSION: CSF attenuation fluid in the right cerebellopontine angle cistern is unchanged from the prior magnetic resonance imaging. No acute intracranial hemorrhage or acute infarction. No transtentorial herniati on. Cerebellar tonsils are at the foramen magnum, unchanged. Ventricles are not enlarged. Right retrosigmoid craniotomy changes are redemonstrated. Small right mastoid effusion is redemonstrated. Paranasal sinuses and left mastoid air cells are clear. IMPRESSION: Stable CSF attenuation fluid in the right cerebellopontine angle cistern. Stable exam. Brain w/wo Brain w/wo EXAM: MRI BRAIN WITH AND WITHOUT CONTRAST 06/02 [place] contrast contrast MRI /2016 - [place] MRI DATE: 06/02/2016 10:00 AM HEALTH PROMOTION OFFICER Read by: Brii Osborn Dictated Date/time: 06/02/16 12:29 Electronically Signed by: Brii Osborn 06/02/16 12:36 FINAL REPORT INDICATION: mass ADDITIONAL DATA: Status post right suboccipital craniectomy, microdissection, removal of arachnoid cyst on 04/20/2016. COMPARISON: Brain MRI dated 03/31/2016 TECHNIQUE: Multiplanar, multisequence non-contrast MRI images of the brain. Multiplanar imaging is subsequently obtained following intravenous gadolinium contrast. IV contrast: 10 mL Dotarem FINDINGS: Diffusion-weighted images and correlative maps of apparent diffusion coefficient demonstrate no acute ischemic change. A collection with CSF signal in the right cerebellopontine angle cistern measuring 1.7 x 3.4 x 2.2 cm AP x Lat x CC is identified. There is no restricted diffusion within this collection. The right negron sverse and sigmoid sinuses, which are lateral to this collection remains patent. A right occipital craniotomy with expected recent postoperative appearance is identified. The remainder of the brain has normal signal intensity. The vascular flow voids are normal. The ventricles and sulci are normal in size. The paranasal sinuses, orbits and mastoids are unremarkable. There is no abnormal enhancement. IMPRESSION: Status post right occipital craniotomy. There has been reaccumulation of fluid in the right cerebellopontine angle cistern, similar in size as compared to the preoperative study. ELECTROLYTE AGAP 15.9 meq/L 10.0 - 04/20 [facility] 20.0 [facility] ELECTROLYTE eGFR 118 04/20 Result Comment: The eGFR is calculated using the CKD-EPI formula. In most young, healthy individuals the eGFR will be > 90 mL/min/1.73m2. The eGFR declines with age. An eGFR of 60-89 may be normal in [facility] mL/min/1.7 some populations, particularly the elderly, for whom the CKD-EPI formula has not been extensively validated. Use of the eGFR is not recommended in the following populations: [address] Individuals with unstable creatinine concentrations, including patients and those with serious co-morbid conditions. Patients with extremes in muscle mass or diet. The data above are obtained from the National Kidney Disease Education Program (NKDEP) which additionally recommends that when the eGFR is used in patients with extremes of body mass index for purposes of drug dosing, the eGFR should be multiplied by the estimated BMI. ELECTROLYTE Glucose Lvl 111 mg/dL 70 - 99 04/20 [facility] ELECTROLYTE BUN 16 mg/dL 7 - 22 04/20 [facility]2015 [facility] ELECTROLYTE Sodium Lvl 142 meq/L 135 - 145 04/[address] ELECTROLYTE CO2 20 meq/L 24 - 32 04/[address] ELECTROLYTE Creatinine 0.68 mg/dL 0.50 - 04/20 [facility] Lvl 1.40 [facility] ELECTROLYTE Potassium 3.9 meq/L 3.5 - 5.1 04/20 [facility] ELECTROLYTE Calcium Lvl 8.8 mg/dL 8.5 - 10.5 04/[address] ELECTROLYTE Chloride Lvl 110 meq/L 95 - 109 04/20 [facility]2015 [facility] HEMATOLOGY PT 16.3 s 12.0 - 04/20 [place] 14.7 /2016 [facility] HEMATOLOGY INR 1.29 0.85 - 04/20 [place] 1.17 /2015 [facility] HEMATOLOGY PTT 27.7 s 22.9 - 04/20 [place] 35.8 /2016 [facility] HEMATOLOGY MCV 88.8 fL 80.0 - 04/20 [place] 98.0 /2016 [facility] HEMATOLOGY MPV 8.2 fL 7.4 - 10.4 04/20 [facility] HEMATOLOGY RDW 12.6 % 11.5 - 04/20 [place] 14.5 /2016 [facility] HEMATOLOGY Platelet 258 K/CMM 133 - 450 04/20 [facility] HEMATOLOGY MCH 30.1 pg 27.0 - 04/20 31.0 /2016 [facility] HEMATOLOGY MCHC 33.9 g/dL 32.0 - 04/20 36.0 /2015 [facility] HEMATOLOGY Hgb 11.0 g/dL 12.0 - 04/20 16.0 /2015 [facility] HEMATOLOGY Hct 32.3 % 36.0 - 04/20 [place] 48.0 /2016 [facility] HEMATOLOGY WBC 4.6 K/CMM 3.7 - 10.4 04/20 [facility] HEMATOLOGY RBC 3.64 M/CMM 4.20 - 04/20 [place] 5.40 /2016 [facility] HEMATOLOGY Lymphocytes 24.5 % 20.0 - 04/20 [place] 40.0 /2016 [facility] HEMATOLOGY Segs 72.5 % 45.0 - 04/20 75.0 /2016 [facility] HEMATOLOGY Monocytes 2.3 % 2.0 - 12.0 04/20 [facility] HEMATOLOGY Eosinophils 0.1 % 0.0 - 4.0 04/20 [facility] HEMATOLOGY Segs-Bands # 3.3 K/CMM 1.5 - 8.1 04/20 [facility] HEMATOLOGY Basophils 0.6 % 0.0 - 1.0 04/20 [facility] HEMATOLOGY Lymphocytes 1.1 K/CMM 1.0 - 5.5 04/20 # /2015 [facility] HEMATOLOGY Monocytes # 0.1 K/CMM 0.0 - 0.8 04/20 [facility] BLOOD BANK ABO/Rh O NEG 04/20 [facility] RESULTS /2015 [facility] BLOOD BANK Antibody Negative 04/20 [facility] RESULTS [facility] (04/20/16 6:00 AM) [place] HEMATOLOGY PTT 28.6 s 22.9 - 04/16 [place] 35.8 /2015 [facility] HEMATOLOGY INR 1.16 0.85 - 04/16 [place] 1.17 [facility] HEMATOLOGY PT 15.0 s 12.0 - 04/16 [place] 14.7 /2015 [facility] HEMATOLOGY Angle 76.9 53.0 - 04/16 [facility] degrees 72.0 [facility] HEMATOLOGY Max Amp 69.7 mm 50.0 - 04/16 [place] 70.0 [facility] HEMATOLOGY Ly30 3.4 % 0.0 - 7.5 04/16 /2015 [facility] HEMATOLOGY G-value 11.5 K 4.5 - 11.0 04/16 [facility] d/sc /2015 [facility] HEMATOLOGY R-time 3.7 min 5.0 - 10.0 04/16 [facility] HEMATOLOGY K-time 0.8 min 1.0 - 3.0 04/16 [facility] HEMATOLOGY Coag Index 3.9 -3.0-3.0 - 04/16 [facility] 3.0 [facility] HEMATOLOGY TEG Data See Note 04/16 [facility] (04/16/16 11:15 AM) [place] HEMATOLOGY TEG Interp Thrombelas 04/16 [facility] tograph [facility] show shortened value of R and increased value of Angle Alpha. 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 - [facility] contrast contrast /2015 - [place] [facility] HISTORY: Arachnoid cyst. Read by: Keagan Liz MD Dictated Date/time: 03/31/16 16:56 Electronically Signed by: Keagan Liz MD 03/31/16 17:03 FINAL REPORT PROCEDURE: Multiplanar multisequence imaging of the brain is performed without and with contrast. 10 mL of Dotarem were injected intravenously. Comparison is made to magnetic resonance imaging performed on 03/23/2016. FINDINGS: Diffusion-weighted imaging demonstrates no acute ischemic event. No evidence for acute infarct is present. Craniocervical junction and corpus callosum are within normal limits. No significant area of abnormal increased FLAIR signal is present. No acute intracranial hemorrhage, midline shift, hydrocephalus, or parenchymal mass lesion is present. There is a 4.4 cm well-defined CSF fluid collec tion in the right cerebellopontine angle which has mass effect which displaces cranial nerves VII and VIII anteriorly. No other mass lesion is identified. This mass demonstrates no abnormal enhancement on postcontrast imaging. There is no abnormal enhancement identified. IMPRESSION: 1. Benign 4.4 cm arachnoid cyst in right cerebellopontine angle with anterior displacement of cranial nerves VII and VIII. 2. No acute intracranial abnormality. No abnormal enhancement. SL: [id number] CHEM PANEL Phosphorus 3.6 mg/dL 2.5 - 4.5 03/24 [facility] CHEM PANEL Magnesium 2.3 mg/dL 1.8 - 2.4 03/24 [facility] CHEM PANEL eGFR 96 03/24 Result Comment: The eGFR is calculated using the CKD-EPI formula. In most young, healthy individuals the eGFR will be >90 mL/ min/1.73m2. The eGFR declines with age. An eGFR of 60-89 may be normal in [facility] mL/min/1.7 some populations, particularly the elderly, for whom the CKD-EPI formula has not been extensively validated. Use of the eGFR is not recommended in the following populations: [address] Individuals with unstable creatinine concentrations, including patients and those with serious co-morbid conditions. Patients with extremes in muscle mass or diet. The data above are obtained from the National Kidney Disease Education Program (NKDEP) which additionally recommends that when the eGFR is used in patients with extremes of body mass index for purposes of drug dosing, the eGFR should be multiplied by the estimated BMI. CHEM PANEL Calcium Lvl 9.2 mg/dL 8.5 - 10.5 03/24 [facility] CHEM PANEL CO2 19 meq/L 24 - 32 03/24 [facility] CHEM PANEL Chloride Lvl 108 meq/L 95 - 109 03/24 [facility] CHEM PANEL Sodium Lvl 139 meq/L 135 - 145 03/24 [facility] CHEM PANEL Potassium 4.0 meq/L 3.5 - 5.1 03/24 [facility] CHEM PANEL Creatinine 0.82 mg/dL 0.50 - 1018 [place] Lvl 1.40 /2016 [facility] CHEM PANEL BUN 10 mg/dL 7 - 22 03/24 /2015 [facility] CHEM PANEL Glucose Lvl 72 mg/dL 70 - 99 03/24 /2015 [facility] CHEM PANEL AGAP 16.0 meq/L 10.0 - 03/24 [place] 20.0 /2016 [facility] HEMATOLOGY Hgb 12.4 g/dL 12.0 - 03/24 [place] 16.0 /2016 [facility] HEMATOLOGY Hct 36.5 % 36.0 - 03/24 [place] 48.0 /2016 [facility] HEMATOLOGY WBC 6.4 K/CMM 3.7 - 10.4 03/24 /2015 [facility] HEMATOLOGY MCH 30.4 pg 27.0 - 03/24 [place] 31.0 2016 [facility] HEMATOLOGY Platelet 274 K/CMM 133 - 450 03/24 /2015 [facility] HEMATOLOGY RDW 12.6 % 11.5 - 03/24 [place] 14.5 /2016 [facility] HEMATOLOGY MPV 8.6 fL 7.4 - 10.4 03/24 /2016 [facility] HEMATOLOGY RBC 4.08 M/CMM 4.20 - 03/24 [place] 5.40 /2016 [facility] HEMATOLOGY MCHC 33.9 g/dL 32.0 - 03/24 [place] 36.0 /2016 [facility] HEMATOLOGY MCV 89.5 fL 80.0 - 03/24 [place] 98.0 /2016 [facility] HEMATOLOGY Basophils # 0.1 K/CMM 0.0 - 0.2 03/24 /2015 [facility] HEMATOLOGY Eosinophils 0.1 K/CMM 0.0 - 0.5 03/24 [place] # /2016 [facility] HEMATOLOGY Segs-Bands # 3.2 K/CMM 1.5 - 8.1 03/24 /2016 [facility] HEMATOLOGY Lymphocytes 2.6 K/CMM 1.0 - 5.5 03/24 [place] # /2016 [facility] HEMATOLOGY Monocytes # 0.4 K/CMM 0.0 - 0.8 03/24 /2016 [facility] HEMATOLOGY Lymphocytes 40.6 % 20.0 - 03/24 [place] 40.0 /2016 [facility] HEMATOLOGY Basophils 0.9 % 0.0 - 1.0 03/24 /2015 [facility] HEMATOLOGY Monocytes 7.0 % 2.0 - 12.0 10/18 [facility] HEMATOLOGY Eosinophils 1.9 % 0.0 - 4.0 03/24 [facility] HEMATOLOGY Segs 49.6 % 45.0 - 03/24 [place] 75.0 [facility] PARATHYROID Ca Norm WB 1.08 1.05 - 03/24 [facility] PROFILE mMol/L 1. [facility] PARATHYROID Ca Ion WB 1.10 1.05 - 03/24 [facility] PROFILE mMol/L 1. [facility] HEMATOLOGY Hgb 11.0 g/dL 12.0 - 03/24 [facility] 16.0 [facility] HEMATOLOGY Hct 32.5 % 36.0 - 03/24 [facility] 48.0 [facility] ANEMIA Vitamin B12 200 pg/mL 254 - 1320 03/23 [facility] STUDY Lv [facility] HEMATOLOGY Hgb 11.6 g/dL 12.0 - 03/23 [facility] 16. [facility] HEMATOLOGY Hct 33.5 % 36.0 - 03/23 [facility] 48.0 [facility] Pelvis w/wo Pelvis w/wo EXAM: MRA PELVIS WITH AND WITHOUT CONTRAST 03/23 - [facility] contrast contrast MRV /2015 - [facility] MRV This report was dictated by a Roof Bolter/Fellow. I have personally reviewed the images as Center well as the Resident's interpretation and agree with the findings. DATE: 03/23/2016 at 2058 hours Read by: Julio Mendez MD Resident: Julio Mendez MD Dictated Date/time: 03/24/16 08:09 Electronically Signed by: Amandeep Interiano MD 03/24/16 11:54 FINAL REPORT INDICATION: TIA versus stroke. ADDITIONAL INFORMATION: Also irregular uterine bleeding. COMPARISON: Lower extremity venous Doppler from 03/23/2016. TECHNIQUE: Multiplanar, multisequence acquisition of the abdomen both prior to and following intravenous contrast, per pelvic MRV protocol. IV contrast: 11 mL of MultiHance. Oral contrast: None. FINDINGS: Inferior vena cava: Patent. Right Pelvic Veins: Common Iliac: Patent. External Iliac: Patent. Internal Iliac: Patent. Left Pelvic Veins: Common Femoral: Patent. Proximal Femoral (SFV): Patent. Left Pelvic Veins: Common Iliac: Patent. External Iliac: Patent. Internal Iliac: Patent. Left Pelvic Veins: Common Femoral: Patent. Proximal Femoral (SFV): Patent. Other visualized pelvic structures are unremarkable. IMPRESSION: No evidence of pelvic deep venous thrombosis. Ext Lower Ext Lower EXAM: US BILATERAL LOWER EXTREMITY VENOUS DOPPLER [facility] Venous Venous - Medical Doppler Doppler This report was dictated by a Roof Bolter/ Fellow. I have personally reviewed the images as Center Bilat US Bilat US well as the Resident's interpretation and agree with the findings. DATE: 03/23/2016 2010 Read by: Brendan Cali MD Resident: Brendan Cali MD Dictated Date/time: 03/24/16 08:15 Electronically Signed by: Amandeep Interiano MD 03/24/16 11:55 FINAL REPORT INDICATION: Other- See Note to Radiologist ADDITIONAL INFORMATION: TIA. Concern for DVT. COMPARISON: None. TECHNIQUE: Multiplanar grayscale, color Doppler and spectral Doppler ultrasound of the bilateral lower extremity veins. FINDINGS: Right Thigh Veins: Common Femoral: Patent. Femoral (SFV): Patent. Popliteal: Patent. Proximal Greater Saphenous: Patent. Deep Femoral Veins: Patent. Left Thigh Veins: Common Femoral: Patent. Femoral (SFV): Patent. Popliteal: Patent. Proximal Greater Saphenous: Patent. Deep Femoral Veins: Patent. Other: None. IMPRESSION: 1. Normal. No deep venous thrombosis (DVT). Thyroid US Thyroid US EXAM: US THYROID 03/23 [facility] - Medical This report was dictated by a Roof Bolter/Fellow. I have personally reviewed the images as Center well as the Resident's interpretation and agree with the findings. DATE: 03/23/2016 5:58 PM CDT Read by: Melodie Dao (Fellow) Rebecca Resident: Melodie Dao (Fellow) Rebecca Dictated Date/time: 03/24/16 08:45 Electronically Signed by: Amandeep Interiano MD 03/24/16 11:55 FINAL REPORT INDICATION: Goiter ADDITIONAL INFORMATION: None. COMPARISON: None. TECHNIQUE: Multiplanar grayscale and color Doppler ultrasound images of the neck were obtained in the area of the thyroid. DISCUSSION: Thyroid parenchyma: Multinodular Right thyroid size: 4.0 x 1.0 x 1.4 cm Left thyroid size: 3.7 x 1.0 x 1.7 cm Thyroid nodule: Within the superior aspect of the right lobe of thyroid gland a 0.37 x 0.56 x 0.30 cm hypoechoic, nonvascular mostly cystic nodule is identified. Within the midportion of the right lobe of thyroid gland to hypoechoic well -circumscribed cysts are identified measuring 0.26 x 0.24 x 0.12 and 0.2 x 0.2 x 0.16 cm respectively. Within the inferior aspe ct of the right lobe of thyroid gland a mostly cystic hypoechoic nodule is identified measuring 0.23 x 0.22 x 0.11 cm. Within the superior aspect of the left lobe of thyroid gland a 0.64 x 0.80 x 0.33 cm hypoechoic well-circumscribed nonvascular cystic nodule is identified. Within the mid upper portion of the left lobe of thyroid gland a hypoechoic nodule is identified measuring 0.35 x 0.40 x 0.22 cm. Within the mid lower portion of the left lobe of thyroid gland a hypoechoic cyst containing a punctate echo is present measuring 0.23 x 0.26 x 0.15 cm. Within the inferior tip of the left lobe of thyroid gland a well- circumscribed hypoechoic nodules present measuring 0.41 x 0.5 45.31 cm. Cervical lymph nodes: Normal. IMPRESSION: Multinodular goiter The nodules within right lobe of thyroid gland do not meet FNA criteria. The nodules within the left lobe of thyroid gland do not meet FNA criteria. Recommendations for Thyroid Nodules > 1 cm Solitary Nodule Microcalcifications: Strongly consider US-guided FNA if=1 cm Solid (or almost entirely solid) or coarse calcifications: Strongly consider US-guided FNA if=1.5 cm Mixed solid and cystic or almost entirely cystic with solid mural component : Consider FNA if=2 cm Almost entirely cystic and none of above features and without substantial growth (or without prior US): US-guided FNA probably unnecessary Multiple Nodules Consider US-guided FNA of one or more nodules, with selection prioritized on basis of criteria (in order listed) for solitary nodule Lymph Nodes Present Presence of abnormal lymph nodes (abnormal morphology such as heterogeneous echotexture, calcifications, cystic area, or short axis diameter= 0.7 cm) overrides US features of thyroid nodule(s) and should prompt US-guided FNA or biopsy of the lymph nodes and/or ipsilateral thyroid nodule. Diffusely Enlarged Gland FNA likely unnecessary with multiple nodules of similar appearance without intervening thyroid parenchyma. NOTE: Recommendations apply only to nodules 1 cm or larger in size because of the uncertainty as to whether or not diagnosis of smaller cancers improves life expectancy, as well as concern that inclusio n of smaller nodules would lead to an excessive number of biopsies. Reference: Rony VALERIO, Smooth MARIEE, Hali HAIR et al. Management of thyroid nodules detected at US: Society of Radiologists in Ultrasound consensus conference statement. Radiology. 2005; [phone]. CARDIAC Troponin-I null 0.00 - 03/23 [facility] ENZYMES 0.40 /2015 [facility] CARDIAC Troponin-I null 0.00 - 03/23 [facility] ENZYMES 0.40 [facility] CHEM PANEL eGFR 119 03/23 Result Comment: The eGFR is calculated using the CKD-EPI formula. In most young, healthy individuals the eGFR will be >90 mL/ min/1.73m2. The eGFR declines with age. An eGFR of 60-89 may be normal in [facility] mL/min/1.7 some populations, particularly the elderly, for whom the CKD-EPI formula has not been extensively validated. Use of the eGFR is not recommended in the following populations: [address] Individuals with unstable creatinine concentrations, including patients and those with serious co-morbid conditions. Patients with extremes in muscle mass or diet. The data above are obtained from the National Kidney Disease Education Program (NKDEP) which additionally recommends that when the eGFR is used in patients with extremes of body mass index for purposes of drug dosing, the eGFR should be multiplied by the estimated BMI. CHEM PANEL Sodium Lvl 143 meq/L 135 - 145 03/23 [facility] CHEM PANEL ALT 24 unit/L 0 - 65 03/23 [facility] CHEM PANEL AST 17 unit/L 0 - 37 03/23 [facility] CHEM PANEL Potassium 4.0 meq/L 3.5 - 5.1 03/23 [facility] Lvl [facility] CHEM PANEL Creatinine 0.67 mg/dL 0.50 - 03/23 [facility] Lvl 1.40 [facility] CHEM PANEL Calcium Lvl 8.9 mg/dL 8.5 - 10.5 03/23 [facility] CHEM PANEL Total 6.3 g/dL 6.4 - 8.4 03/23 [facility] CHEM PANEL Albumin Lvl 3.4 g/dL 3.5 - 5.0 03/23 [facility] CHEM PANEL Chloride Lvl 110 meq/L 95 - 109 03/23 [facility] CHEM PANEL CO2 21 meq/L 24 - 32 03/23 [facility] CHEM PANEL Alk Phos 45 unit/L 39 - 136 03/23 [facility] CHEM PANEL Bili Total 0.5 mg/dL 0.2 - 1.3 03/23 [facility] CHEM PANEL Glucose Lvl 81 mg/dL 70 - 99 03/23 [facility] CHEM PANEL BUN 15 mg/dL 7 - 22 03/23 [facility] CHEM PANEL AGAP 16.0 meq/L 10.0 - 03/23 [place] 20.0 [facility] CHEM PANEL B/C Ratio 22 6 - 25 03/23 [facility] CHEM PANEL Globulin 2.9 g/dL 2.7 - 4.2 03/23 [facility] CHEM PANEL A/G Ratio 1.2 0.7 - 1.6 03/23 [facility] HEMATOLOGY Segs 47.7 % 45.0 - 03/23 [facility] 75.0 [facility] HEMATOLOGY Eosinophils 1.1 % 0.0 - 4.0 03/23 [facility] HEMATOLOGY Basophils 0.8 % 0.0 - 1.0 03/23 [facility] HEMATOLOGY Lymphocytes 43.9 % 20.0 - 03/23 [place] 40.0 /2016 [facility] HEMATOLOGY Monocytes 6.5 % 2.0 - 12.0 03/23 [facility] HEMATOLOGY Segs-Bands # 3.4 K/CMM 1.5 - 8.1 03/23 [facility] HEMATOLOGY Lymphocytes 3.1 K/CMM 1.0 - 5.5 03/23 [facility] HEMATOLOGY Basophils # 0.1 K/CMM 0.0 - 0.2 03/23 [facility] HEMATOLOGY Monocytes # 0.5 K/CMM 0.0 - 0.8 03/23 [facility] HEMATOLOGY Eosinophils 0.1 K/CMM 0.0 - 0.5 03/23 [facility] HEMATOLOGY RDW 12.3 % 11.5 - 03/23 [place] 14.5 /2016 [facility] HEMATOLOGY Platelet 248 K/CMM 133 - 450 03/23 [facility] HEMATOLOGY MPV 8.7 fL 7.4 - 10.4 03/23 /2015 [facility] HEMATOLOGY WBC 7.1 K/CMM 3.7 - 10.4 03/23 [facility] HEMATOLOGY RBC 3.43 M/CMM 4.20 - 03/23 [place] 5.40 /2015 [facility] HEMATOLOGY MCHC 34.3 g/dL 32.0 - 03/23 [place] 36.0 /2015 [facility] HEMATOLOGY MCV 88.5 fL 80.0 - 03/23 [place] 98.0 /2015 [facility] HEMATOLOGY MCH 30.3 pg 27.0 - 03/23 [place] 31.0 /2015 [facility] LIPIDS CHD Risk 2.13 3.90 - 03/23 [place] 5.80 /2015 [facility] LIPIDS VLDL 16 03/23 /2015 [facility] LIPIDS LDL 54 mg/dL <=99 mg/dL 03/23 [facility] (Calculated) [facility] LIPIDS Chol 132 mg/dL <=199 03/23 [place] mg/dL [facility] LIPIDS HDL 62 mg/dL >=61 mg/dL 03/23 [place] [facility] LIPIDS Trig 81 mg/dL <=149 03/23 [facility] mg/dL [facility] SPECIAL Hgb A1C 4.9 % <=5.6 % 03/23 [facility] CHEMISTRY /2015 [facility] URINE AND UA <=1.0 0.1 - 1.0 03/23 [facility] STOOL Urobilinogen mg/dL [facility] URINE AND UA RBC null 0 - 2 03/23 [facility] STOOL [facility] URINE AND UA Mucus Few /LPF None Seen 03/23 [facility] STOOL /LPF /2015 [facility] URINE AND UA Sq Epi Many /LPF Few /LPF 03/23 [facility] STOOL [facility] URINE AND UA WBC 162 /HPF 0 - 5 03/23 [facility] STOOL /2016 [facility] URINE AND UA Ketones TR 03/23 [facility] URINE AND UA pH 5.5 5.0 - 8.0 03/23 [facility] STOOL 2016 [facility] URINE AND UA Protein 70 mg/dL Negative 03/23 [facility] STOOL mg/dL /2015 [facility] URINE AND UA Bili Negative Negative 03/23 [facility] [place] (03/23/16 12:33 AM) URINE AND UA Blood Large Negative 03/23 [facility] (03/23/16 12:33 AM) URINE AND UA Glucose Negative Negative 03/23 [facility] mg/dL mg/dL [facility] URINE AND UA Turbidity Slight Clear 03/23 [facility] (03/23/16 12:33 AM) URINE AND UA Spec Grav 1.019 <=1.030 03/23 [facility] URINE AND UA Color Yellow Yellow 03/23 [facility] 12[facility]33 AM[facility] URINE AND UA Nitrite Negative Negative 03/23 [facility] (03/23/16 12:33 AM) [place] URINE AND UA Leuk Est Large Negative 03/23 [facility] (03/23/16 12:33 AM) Brain wo Brain wo EXAM: MRI BRAIN WITHOUT CONTRAST 03/23 - [facility] contrast contrast MRI - [facility] DATE: 03/22/2016 11:36 PM CDT Read by: Petey Calvin MD Dictated Date/time: 03/23/16 08:56 Electronically Signed by: Petey Calvin MD 03/23/16 10:05 FINAL REPORT INDICATION: 30 years old Female patient with history of Dysarthria. COMPARISON: None. TECHNIQUE: Multiplanar, multisequence MRI of the brain without contrast. FINDINGS: Cystic lesion is seen in the right cerebellopontine angle measuring 3.8 x 1.8 cm exerting mass effect over the right cranial nerve VII and VIII complex and lateral aspect of the right middle cerebellar peduncle. No diffusion restriction is identified. No focal brain parenchymal diffusion restriction is identified. No intracranial hemorrhage is identified. The ventricles are normal in size. No parenchymal mass, mass effect or midline shift is present. No pathologic extra axial fluid is identified. Major intracranial vascular flow voids are preserved. IMPRESSION: 1. Cystic mass in the right cerebellopontine angle with signal suppression on the FLAIR sequences compatible with an arachnoid cyst. Associated mass effect over the posterior aspect of the right crania l nerve VII and VIII complex and mass effect over the lateral aspect of the right middle cerebellar peduncle. Brain/Neck Brain/Neck EXAM: CTA BRAIN 03/23 - [facility] CTA CTA /2016 - Medical EXAM: CTA NECK This report was dictated by a Roof Bolter/ Fellow. I have personally reviewed the images as Center well as the Resident's interpretation and agree with the findings. Read by: Julio Gordon MD Resident: Julio Gordon MD Dictated Date/time: 03/23/16 09:30 DATE: 03/22/2016 11:36 PM CDT Electronically Signed by: Abhay Rai MD 03/23/16 17:24 FINAL REPORT INDICATION: Numbness COMPARISON: CT of the brain without contrast 03/23/2016 at 0015 hours TECHNIQUE: Rapid acquisition spiral CT images of the brain and neck were obtained between the aortic arch and the cranial vertex during intravenous infusion of iodinated contrast for the purposes of CT angiography . 3-D CT angiographic images are created using MIP technique at the acquisition workstation. The source images are also presented for interpretation. IV contrast: 60 mL of Omnipaque 350 DLP: 1140 mGy-cm FINDINGS: NECK CTA: Aortic arch: The great vessels originate from the aortic arch in the standard configuration. No origin stenosis is identified. The vertebral artery origins are patent bilaterally. Carotid arteries: The cervical common carotid arteries and cervical internal carotid arteries have a normal course, caliber, and contour. There are areas of calcification at the carotid bifurcations. No hemodynamically significant stenosis of the carotid bifurcations or internal carotid arteries is present by NASCET criteria. There is no evidence of vascular injury. Vertebral arteries: Early origin of the right vertebral artery with more distal entrance into the transverse foramen, present at C5. The vertebral arteries otherwise have a normal course, caliber and contour. The thyroid gland is slightly heterogeneous with small subcentimeter and punctate nodules. BRAIN CTA: The right A1 segment of the CLARENCE contains a small fenestration, a normal variant. origin of the right [employer] is noted with a hypoplastic P1 segment. The anterior and posterior circulations otherwise h ave a normal appearance and branching pattern. No branch occlusion, vascular injury, arteritis, vascular malformation or aneurysm is identified. The deep cerebral veins and major venous sinuses are normal. There is a right cerebellopontine angle arachnoid cyst. The brain parenchyma and other incidental structures are otherwise unremarkable. IMPRESSION: 1. No vascular occlusion, stenosis, or other abnormality. 2. Normal anatomic variants within the right vertebral artery and curyung of Paula. 3. Heterogeneous thyroid gland with subcentimeter nodules. This can be further evaluated with nonemergent thyroid ultrasound. (All qualitative and quantitative assessments of carotid bifurcation and proximal internal carotid artery stenosis are made referencing the distal internal carotid artery {NASCET criteria}.) Vital Signs Vital Sign Value Date Comments Source BMI Calculated 22.19 05/19/2017 [facility] Height 162.56 cm 05/19/2017 [facility] Weight 58.636 05/19/2017 [facility] Systolic (mm Hg) 109 05/19/2017 [facility] Diastolic (mm Hg) 74 05/19/2017 [facility] Temperature Oral (F) 98.3 F 05/19/2017 [facility] Heart Rate 85 05/19/2017 [facility] Respitory Rate 16 05/04/2017 [facility] Systolic (mm Hg) 100 05/04/2017 [facility] Diastolic (mm Hg) 60 05/04/2017 [facility] Systolic (mm Hg) 94 05/04/2017 [facility] Diastolic (mm Hg) 57 05/04/2017 [facility] Respitory Rate 15 05/04/2017 [facility] Systolic (mm Hg) 95 05/04/2017 [facility] Diastolic (mm Hg) 57 05/04/2017 [facility] Respitory Rate 13 05/04/2017 [facility] Heart Rate 68 05/04/2017 [facility] BMI Calculated 21.67 05/04/2017 [facility] Weight 57.273 05/04/2017 [facility] Height 162.56 cm 04/27/2017 [facility] Respitory Rate 16 04/02/2017 [facility] Systolic (mm Hg) 103 04/02/2017 [facility] Diastolic (mm Hg) 70 04/02/2017 [facility] Temperature Oral (F) 98.0 F 04/02/2017 [facility] Heart Rate 59 04/02/2017 [facility] Heart Rate 63 04/02/2017 [facility] Temperature Oral (F) 98.2 F 04/02/2017 [facility] Respitory Rate 16 04/02/2017 [facility] Systolic (mm Hg) 97 04/02/2017 [facility] Diastolic (mm Hg) 62 04/02/2017 [facility] Heart Rate 64 04/02/2017 [facility] Temperature Oral (F) 98.3 F 04/02/2017 [facility] Respitory Rate 16 04/02/2017 [facility] Systolic (mm Hg) 103 04/02/2017 [facility] Diastolic (mm Hg) 66 04/02/2017 [facility] Weight 61.818 03/30/2017 [facility] Height 163.83 cm 03/30/2017 [facility] BMI Calculated 23.03 03/30/2017 [facility] BMI Calculated 23.03 03/24/2017 [facility] Weight 61.818 03/24/2017 [facility] Height 163.83 cm 03/24/2017 [facility] Systolic (mm Hg) 94 04/21/2016 [facility] Diastolic (mm Hg) 55 04/21/2016 [facility] Respitory Rate 20 04/21/2016 [facility] Temperature Oral (F) 98.2 F 04/21/2016 [facility] Respitory Rate 23 04/21/2016 [facility] Systolic (mm Hg) 95 04/21/2016 [facility] Diastolic (mm Hg) 53 04/21/2016 [facility] Respitory Rate 14 04/21/2016 [facility] Systolic (mm Hg) 91 04/21/2016 [facility] Diastolic (mm Hg) 55 04/21/2016 [facility] Temperature Oral (F) 97.8 F 04/21/2016 [facility] Temperature Oral (F) 97.5 F 04/21/2016 [facility] BMI Calculated 21.17 04/21/2016 [facility] Weight 57.7 04/21/2016 [facility] Height 165.1 cm 04/21/2016 [facility] Weight 57.727 04/20/2016 [facility] BMI Calculated 21.18 04/20/2016 [facility] Height 165.1 cm 04/20/2016 [facility] Heart Rate 75 04/20/2016 [facility] Temperature Oral (F) 98.7 F 03/24/2016 [facility] Respitory Rate 16 03/24/2016 [facility] Heart Rate 77 03/24/2016 [facility] Systolic (mm Hg) 93 03/24/2016 [facility] Diastolic (mm Hg) 57 03/24/2016 [facility] Systolic (mm Hg) 100 03/24/2016 [facility] Diastolic (mm Hg) 64 03/24/2016 [facility] Heart Rate 61 03/24/2016 [facility] Temperature Oral (F) 98.0 F 03/24/2016 [facility] Respitory Rate 16 03/24/2016 [facility] Systolic (mm Hg) 96 03/24/2016 [facility] Diastolic (mm Hg) 55 03/24/2016 [facility] Heart Rate 88 03/24/2016 [facility] Temperature Oral (F) 98.3 F 03/24/2016 [facility] Respitory Rate 18 03/24/2016 [facility] Weight 59.091 03/23/2016 [facility] BMI Calculated 22.36 03/23/2016 [facility] Height 162.56 cm 03/23/2016 [facility] Encounters Location Location Encounter Encounter Reason Attending ADM DC Status Source Details Type Number For Provider Date Date Visit [facility] [id number] [facility] 03/23 03/24 [facility] Outpt Diag [id number] Dell Day 03/31 04/01 [facility] [place] [facility] [id number] DELL L 04/[address] [facility] [place] [facility] [id number] DELL L 04/[address] [facility] Inpatient [id number] Dell Day 04/20 04/21 [facility] [id number] DELL L 05/[address] [facility] Outpt Diag [id number] Dell Day 06/02 06/03 [facility] [place] [facility] [id number] DELL L 06/[address] [facility] [place] [facility] [id number] DELL L 07/[address] [facility] Out[facility] [id number] Dell Day 07/22 07/23 [facility] [facility] [place] [facility] [id number] DELL L 02/24 [facility] Outpt Diag [id number] Dell Day 02/24 02/25 [facility] [place] [facility] [place] [facility] [id number] DELL L [id number] [facility] 03/30 04/[address] [facility] Outpt Diag [id number] Dell Day 04/09 04/10 [facility] [id number] DELL L 04/14 [facility] [place] [facility] Phone [id number] 04/23 04/25 [facility] [id number] DELL L 05/04 [facility] [id number] Dell Day 05/04 05/05 [facility] [id number] Dell Day 05/04 05/05 [facility] Phone [id number] 05/04 05/06 [facility] Outpatient [id number] DELL L 05/19 [facility] [place] [facility] [id number] Dell Day 05/19 05/20 [facility] Outpatient [id number] DELL L 12/31 [facility] [place] [facility] [id number] [facility] 01/05 [facility] [place] Out[facility] [id number] DELL L 01/26 [facility] [place] [facility] [id number] [facility] 02/15 [facility] [place] Out[facility] [id number] DELL L 02/28 [facility] [place] [facility] [id number] EDLL L 04/04 [facility] [place] Procedures Procedure Code Date Perfomer Comments Source Craniotomy [id number] [facility] [place] Gastric operation [id number] [facility] [place] Craniotomy [id number] [facility] Gastric operation [id number] [facility] Craniotomy [id number] [facility] [place] Gastric operation [id number] [facility] [place] Gastric operation [id number] [facility] [place] Craniotomy [id number] [facility] [id number] [facility] Gastric operation [id number] [facility] cyst peritoneal [id number] [facility] Craniotomy [id number] [facility] [place] [facility] Gastric operation [id number] [facility] [place] [facility]
[2018-03-10] MEDS ORDERED: Ringers Lactate 1,000 ML IV ONE ×3 (09:52→15:48)
[2018-03-10] MEDS ORDERED: SCOPOLAMINE HYDROBROMIDE PATCH TD ONE (09:53)
[2018-03-10 10:13] LABS: Specific Gravity 1.025 (1.005-1.030)
[2018-03-10] MEDS ORDERED: LIDOCAINE 2% MPF 5 ML VIAL ONE (12:15)
[2018-03-10] MEDS ORDERED: PROPOFOL 200 MG/20 ML VIAL IV ONE (12:15)
[2018-03-10] MEDS ORDERED: MIDAZOLAM HCL 2 MG/2 ML INJ ONE (12:15)
[2018-03-10] MEDS ORDERED: FENTANYL CITR 250 MCG/5 ML ONE (12:15)
[2018-03-10] MEDS ORDERED: ROCURONIUM 50 MG/5 ML VIAL IV ONE ×2 (12:15→13:39)
[2018-03-10] MEDS ORDERED: DEXAMETHASONE 10 MG/ML VIAL ONE (12:15)
[2018-03-10] MEDS ORDERED: ONDANSETRON HCL 40 MG/20 ML VIAL ONE (12:16)
[2018-03-10] MEDS ORDERED: HYDROCORTISONE SUC 250 MG INJ ONE (12:18)
[2018-03-10] MEDS ORDERED: NA CHLORIDE 0.9% 1,000 ML ONE (12:27)
[2018-03-10] MEDS: CEFAZOLIN/SWI 1gm 1 GM/10 ML SYR ONE ×2 (12:35→12:45)
[2018-03-10] MEDS ORDERED: EPHEDRINE SULF 50 MG/10 ML SYR ONE (12:49)
[2018-03-10] MEDS ORDERED: KETOROLAC 30 MG/ML INJ ONE ×2 (14:26→15:12)
[2018-03-10] MEDS ORDERED: NEOSTIGMINE 1 MG/ML -5 ML SYRINGE ONE (14:52)
[2018-03-10] MEDS ORDERED: GLYCOPYRROLATE 0.2 MG/ML SYR ONE ×2 (14:52)
[2018-03-10] MEDS ORDERED: Mastisol Adhesive Liq ONE (14:55)
[2018-03-10] MEDS: FENTANYL CITR 100 MCG/2 ML ONE ×5 (15:02→15:39)
[2018-03-10] MEDS ORDERED: PROMETHAZINE 25 MG/ML VIAL ONE (15:37)
[2018-03-10] MEDS ORDERED: MEPERIDINE HCL 50 MG/ML AMP IM PRN (15:41)
[2018-03-10 15:42] VITALS: O2SAT 98
[2018-03-10] MEDS ORDERED: IBUPROFEN 200 MG TAB PO PRN (15:43)
[2018-03-10] MEDS ORDERED: PROMETHAZINE 25 MG/ML VIAL IV PRN (15:44)
[2018-03-10] MEDS ORDERED: PROMETHAZINE 25 MG TABLET PO PRN (15:44)
[2018-03-10] MEDS ORDERED: Ringers Lactate 1,000 ML IV SCH (16:00)
[2018-03-10 17:06] VITALS: BMI 21.3
[2018-03-10] MEDS ORDERED: INFLUENZA VACCINE (for 3y+) 0.5 ML DOSE IMVAC ONE (18:00)
[2018-03-10] MEDS: HYDROCODONE/APAP 5/325 MG TAB PO PRN (20:25)
--- NOTE | 2018-03-11 02:08 | OP ---
Date of Procedure: 03/10/2018 Surgeon: Asuncion Montes MD Medical Reviewer: Jocelyn Arellano. Preoperative Diagnoses: Menorrhagia, deep dyspareunia, right lower quadrant pain. Postoperative Diagnoses: Menorrhagia, deep dyspareunia, right lower quadrant pain. Procedures Performed: Total laparoscopic hysterectomy, bilateral salpingectomy, and cystoscopy. Anesthesia: General endotracheal. Specimens: Uterus and bilateral tubes. Complications: None. Drains: None. Condition: Stable. Findings: Shunt in place. Appendix normal. No evidence of an endometriosis. Ovaries appeared to b e unremarkable. Tubes not scarred. Description Of Procedure: After informed consent was verified, patient was taken back to OR. She wa s placed in a supine fashion on the operating table. After general anesthesia was given, she was jorge luis elen in a dorsal lithotomy position using Stan stirrups. 1 g of Ancef was given to the patient. SCD s were placed. After general anesthesia was given, she was placed in a dorsal lithotomy position usi ng Stan stirrups. Pelvic exam was performed. Uterus was anteflexed. No adnexal masses were noted. Abdomen, vulva, vagina, and perineum were prepped and draped in a sterile fashion. Her head was rais ed slightly while she was supine on the table on 2 pillows. Anesthesia fully aware that her intracra nial cyst could potentially cause increased intracranial pressure due to the iatrogenic occlusion of the peritoneal shunt. Care was taken to induce her without any significant hypertension during induc tion of anesthesia. After abdomen, vulva, vagina, and perineum were prepped and draped in a sterile fashion, Aquino was pl aced to drain the bladder and large VCare was introduced into the uterus and fixed in place. This ar ea was then draped. A 1 cm infraumbilical incision was made with a scalpel using open laparoscopy te chnique. Fascia was incised and a stay suture was placed with 0 Vicryl on each side with CT-2 needle . Peritoneum was entered bluntly. Will was introduced. Site of entry was checked and was unremar kable. The peritoneal shunt was seen in the right paracolic gutter. The appendix unremarkable. The patient was then kept in a flat position. Suprapubic 10 mm and 5 mm left lower quadrant ports were placed under direct vision without any problems. Then, peritoneal cavity was surveyed. No evidence of any endometriosis. So, we proceeded to perform a hysterectomy instead of excision of the cyst pre suming that she could have adenomyosis or other pathology within the uterus that could cause her pain . Once the decision was made, the left round ligament was taken down with the help of a 5 mm curved tip LigaSure, the utero-ovarian ligament and mesosalpinx tube were removed. Posterior and anterior darryl toneum on the broad ligament were opened up posterior all the way to the left uterosacral ligament an d anterior all the way to the opposite side of the bladder flap. The broad ligament was taken down s keletonizing the vessels. Opposite side, similar dissection was performed, taking down the round lig ament, connecting the peritoneum anteriorly and taking the mesosalpinx to the uteroovarian ligament. Posterior peritoneum was taken down to the right uterosacral. The anterior broad ligament was taken down, skeletonizing the right vessels. Then, the bladder flap was raised using the monopolar hook b lade on the anterior aspect of the cup, just taken down below the bladder to enter the vesicovaginal space. Once the vesicovaginal space was entered, the bladder was pushed down inferiorly. Then, once pubocervical fascia was completely exposed then medial cut to the vessels was placed with the help o f a monopolar hook blade, about half a centimeter to allow the bipolar basket tips to get in there. The anterior vaginal branch was cauterized and the ascending and descending branches were taken down, the artery and the vein. Then, the cardinal ligaments were taken down all the way to the level of t he cup. Then, on the opposite side, similar dissection was performed to take down the uterine vessel s, the vaginal branches, and then the cardinal ligaments. Then, using a monopolar hook blade, circum ferential colpotomy performed with the help of the curved tip and then once the specimen was detached , was carefully pulled out through the vagina without any spillage or pushing the vaginal part into t he peritoneal cavity. Quickly suction was done around the vaginal incisional edges. There was good hemostasis. Bipolar was used in the posterior aspect for cauterization. Then, 0 PDS was taken, 2 si mple sutures at both angles and 3 [id number] in the middle were done to have good apposition an d closure. Once this was done, 3-0 Monocryl was needle and peritoneum was closed all arou nd the cuff, retroperitoneally lysing the cuff closure. Both tubes were taken down by dissecting the mesosalpinx from the cut end of the tube to the ovary, f irst on the left than on the right. Both specimens were removed through the suprapubic trocar. Afte r visualization of the pelvic cavity, good hemostasis and good peristalsis of ureters without any shadi ctrical, mechanical, or thermal injury. Ports were removed under visualization. Gas was desufflated . Umbilical port was removed. Fascia closed here with the ends of the 0 Vicryl sutures, tied togeth er, and snugly on the fascia. The suprapubic fascial incision closed with the help of a 0 Vicryl fig [id number]. All skin incisions were closed with 4-0 Monocryl interrupted. Aquino and bulb were removed. A 17-Grenadian sheath, 30-degree lens, and normal saline were used as dist ention. Cystoscopy was performed. Both ureteric orifices were well visualized and patent. No evide nce of any trauma or foreign body in the bladder. The cystoscopy was completed by visualizing the en tire bladder. This was unremarkable without any tumors or diverticula or ulceration. The bladder wa s drained. The vagina was cleaned up and drained. Instrument, needle, and sponge counts x3 were cor rect at the end of the case. The patient tolerated the procedure well. She was recovered from anest hesia without any complications, any hypertension, and transferred to the PACU. She will be transfer red for outpatient observation overnight and then she will be discharged home tomorrow. TINO Voice ID: [id number] Report ID: [id number]
[2018-03-11] MEDS: HYDROCODONE/APAP 5/325 MG TAB PO PRN (03:00)
[2018-03-11 08:36] VITALS: BP 94/47; TEMP 97.8
== END 2018-03-11 07:45 | disposition home or self-care (01) ==
LOC: OR 09:33 → 2ND-WC 14:50 → OR 03-11 07:45
PROVIDERS: ATTEND Obstetrics & Gynecology
PROC: 0UT74ZZ Resection of Bilateral Fallopian Tubes, Percutaneous Endoscopic Approach (ICD-10-PCS; 2018-03-10)
PROC: 0UT94ZZ Resection of Uterus, Percutaneous Endoscopic Approach (ICD-10-PCS; principal; 2018-03-10 11:00)
DX: N92.0 Excessive and frequent menstruation with regular cycle (principal); N94.12 Deep dyspareunia; R10.31 Right lower quadrant pain; Z88.6 Allergy status to analgesic agent; Z98.84 Bariatric surgery status; Z83.3 Family history of diabetes mellitus
CPT/HCPCS: 36415; 81003; 81025; 85025; 86850; 86900; 86901; 88307; J0690; J1100; J1720; J2175; J2250; J2405; J2550; J2710; J3010; J7030

== ENCOUNTER 2018-03-13 00:52 | Emergency (ER) | payer OTHER ==
--- OUTSIDE RECORDS SUMMARY | 2018-03-13 01:04 | XMS REPORT | Continuity of Care Document ---
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, UNSPECIFIED" TIA Active [address] Arachnoid cyst Active Problem 05/07/2017 PADMINI Edmondson,[facility] Headache Active Problem 05/07/2017 OPID Delvis,[facility] Iron deficiency Active Problem 05/07/2017 OPID anemia Delvis,[facility] Multinodular Active Problem 05/07/2017 OPID thyroid Delvis,[facility] Cough Active Problem 05/07/2017 OPID Delvis,[facility] PFO (<span Active Problem 05/07/2017 [facility] ID[facility][id number] [facility]spa [place] n>) [facility] Arachnoid cyst Active Problem 04/12/2017 OPID [place], [facility] [place] Headache Active Problem 04/12/2017 OPID [place], [facility] [place] Iron deficiency Active Problem 04/12/2017 OPID anemia [place], [facility] [place] Multinodular Active Problem 04/12/2017 OPID thyroid [place], [facility] [place] Cough Active Problem 04/12/2017 OPID [place], [facility] [place] PFO (<span Active Problem 04/12/2017 [facility] ID[facility][id number] [facility]Confirmed</spa OPID n>) [place] Arachnoid cyst Active Problem 05/22/2017 OPID [facility] Headache Active Problem 05/22/2017 OPID [facility] Iron deficiency Active Problem 05/22/2017 OPID anemia [facility] Multinodular Active Problem 05/22/2017 OPID thyroid [place] Cough Active Problem 05/22/2017 OPID [facility] PFO (<span Active Problem 05/22/2017 OPID ID="[id number] Delvis,Leta ">Confirmed</spa [facility] n>) OTHER SPECIFIED Active [facility] CONGENITAL Medical DEFORMITIES Center Medications Medication Details Route Status Patient Ordering Order Source Instructions Provider Date Oxycodone 5 mg, 1 tab, No Longer [facility] Route: PO, Drug Active 2016 Medical form: TAB, Q4H, Center Dosing Weight 57.273, kg, PRN Pain Score 4-6, Start date: 05/04/17 9:12:00 REMELT FURNACE EXPEDITER, Duration: 30 day, Stop date: 06/03/17 9:11:00 CSTNotes: (Same as: Roxicodone) Flumazenil 0.2 mg, 2 mL, No Longer [facility] Route: IVP, Drug Active 2016 Medical form: INJ, PRN, Center Dosing Weight 57.273, kg, PRN Benzodiazepine Reversal, Initial dose, Start date: 05/04/17 9:12:00 REMELT FURNACE EXPEDITER, Duration: 30 day, Stop date: 06/03/17 9:11:00 CSTNotes: (Same as: Romazicon) Ondansetron 4 mg, Route: Inactive 05/04[facility] IVP, ONCE, 2016 Medical Dosing Weight Center 57.273, kg, PRN Nausea & Vomiting, Start date: 05/04/17 9:12:00 REMELT FURNACE EXPEDITER Naloxone 0.4 mg, 1 mL, No Longer 05/04[facility] Route: IVP, Drug Active 2016 Medical form: INJ, Center Q2MIN, Dosing Weight 57.273, kg, PRN Narcotic Reversal, Start date: 05/04/17 9:12:00 REMELT FURNACE EXPEDITER, Duration: 8 doses or times, Stop date: Limited # of timesNotes: Same as Narcan Acetaminophen 1,000 mg, 2 tab, No Longer 05/04[facility] Route: PO, Drug Active 2016 Medical form: TAB, ONCE, Center Dosing Weight 57.273, kg, PRN Pain Score 1-3, Start date: 05/04/17 9:12:00 CSTNotes: Max acetaminophen 4000 mg/day (4 gm/day). (Same as: Tylenol Extra Strength) Ondansetron 4 MG 4 mg=1 tab, PO, Active [place] Oral Tablet Q6H, PRN 2017 Medical [Zofran] [...] Refill(s) ondansetron (ANES) Route: IV, Drug Inactive [place] form: INJ, ONCE, 2016 Medical Stop date: [place] 05/04/17 8:58:00 REMELT FURNACE EXPEDITER ceFAZolin (ANES) Route: IV, Drug Inactive [facility] form: INJ, ONCE, 2016 Medical Stop date: Center 05/04/17 8:58:00 REMELT FURNACE EXPEDITER Zofran 4 mg, 2 mL, No Longer [place] Route: IVP, Drug Active 2016 Medical form: INJ, Q8H, Center Dosing Weight 57.273, kg, PRN Nausea, Start date: 05/04/17 8:58:00 REMELT FURNACE EXPEDITER, Duration: 30 day, Stop date: 06/03/17 8:57:00 CSTNotes: (Same as: Zofran) MEDICATION WASTE Product Size: 4 mg Product Wasted: ___ mg Acetaminophen 325 2 tab, Route: No Longer [facility] MG / Hydrocodone PO, Drug Form: Active 2016 Medical Bitartrate 5 MG TAB, Dosing Center Oral Tablet Weight 57.273, kg, Q4H, PRN Pain Score 4-6, Start date: 05/04/17 8:56:00 REMELT FURNACE EXPEDITER, Duration: 30 day, Stop date: 06/03/17 8:55:00 CSTNotes: (Same as: M[place]omb 325/5) Do not exceed 4gm/day of acetaminophen. Hydromorphone 0.5 mg, Route: No Longer [place] IVP, Q4H, Dosing Active 2016 [facility] Weight 57.273, [place] kg, PRN Pain Score 4-6, Start date: 05/04/17 8:56:00 REMELT FURNACE EXPEDITER, Duration: 30 day, Stop date: 06/03/17 8:55:00 REMELT FURNACE EXPEDITER fentaNYL (ANES) Route: IV, Drug Inactive [facility] form: INJ, ONCE, 2016 Medical Stop date: [place] 05/04/17 8:43:00 REMELT FURNACE EXPEDITER propofol (ANES) Route: IV, Drug Inactive [facility] form: INJ, ONCE, 2016 Medical Stop date: [place] 05/04/17 8:43:00 REMELT FURNACE EXPEDITER lidocaine (ANES) Route: IV, Drug Inactive [facility] form: INJ, ONCE, 2016 Medical Stop date: [place] 05/04/17 8:38:00 REMELT FURNACE EXPEDITER midazolam (ANES) Route: IV, Drug Inactive [facility] form: SOLN, 2016 Medical ONCE, Stop date: [place] 05/04/17 8:13:00 REMELT FURNACE EXPEDITER propofol (ANES) 10 Route: IV, Drug Inactive [facility] mg form: INJ, Start 2016 Medical date: 05/04/17 [place] 8:03:00 REMELT FURNACE EXPEDITER, Stop date: 05/04/17 9:03:00 REMELT FURNACE EXPEDITER Lactated Ringers Route: IV, Total Inactive [facility] Injection IV Volume: 1,000, 2017 Medical (ANES) 1000 mL Start date: [place] 05/04/17 7:30:00 REMELT FURNACE EXPEDITER, Stop date: 05/04/17 8:30:00 REMELT FURNACE EXPEDITER ceFAZolin + 2 gm, Route: IV, No Longer [place] sterile water 20 PRE OP, Start Active 2016 Medical mL date: 05/04/17 [place] 2:00:00 REMELT FURNACE EXPEDITER, Duration: 30 day, Stop date: 06/03/17 1:59:00 REMELT FURNACE EXPEDITER, ABX Indication: Surgical ProphylaxisNotes : (Same As: Sugey Burr) MEDICATION WASTE Product Size: 1000 mg Product Wasted: ___ mg Docusate Sodium 100 mg=1 cap, Active [place] 100 MG Oral PO, BID, # 60 2016 [facility] Capsule [Colace] cap, 0 Refill(s) [place] tramadol 50 mg=1 tab, PO, No Longer [place] hydrochloride 50 Q8H, PRN Pain, # Active 2016 Medical MG Oral Tablet 60 tab, 0 Center Refill(s) Mccomb 5/325 oral 1 tab, PO, Q6H, Active [place] tablet # 60 tab, 0 2016 Medical Refill(s) Center influenza virus 0.5 mL, Route: No Longer [place] vaccine, IM, Daily, Start Active 2016 Medical inactivated date: 04/01/17 Center 9:00:00 CDT, Duration: 1 doses or times, Stop date: 04/01/17 9:00:00 CDT [place] 5/325 oral 1 tab, Route: No Longer [place] tablet PO, Drug Form: Active 2016 Medical TAB, Dosing Center Weight 61.818, kg, Q4H, Start date: 03/31/17 16:00:00 CDT, Duration: 30 day, Stop date: 04/30/17 12:00:00 CSTNotes: (Same as: Mccomb 325/5) Do not exceed 4gm/day of acetaminophen. heparin 5000 5,000 unit, 1 No Longer [place] units/mL mL, Route: Active 2016 [facility] injectable SUB-Q, Drug Center solution form: INJ, Q8H, Dosing Weight 61.818, kg, Start date: 03/31/17 16:00:00 CDT, Duration: 30 day, Stop date: 04/30/17 8:00:00 CSTNotes: porcine heparin acetaminophen-hydr 1 tab, PO, Q6H, No Longer [place] ocodone 325 mg-10 PRN Pain Score Active 2016 Medical mg oral tablet 4-6, # 60 tab, 0 Center Refill(s) Zofran 4 mg oral 4 mg=1 tab, PO, Active [place] tablet Q8H, PRN 2017 Medical Nausea/vomiting, Center # 30 tab, 0 Refill(s), Pharmacy: [facility]/pharmacy #[id number] senna 8.6 mg oral 17.2 mg=2 tab, Active [place] tablet PO, Bedtime, PRN 2017 Medical Constipation, X Center 10 day, # 20 tab, 0 Refill(s), Pharmacy: [facility]/pharmacy #[id number] magnesium citrate 8.725 cq=804 ml, Active [place] 1.745 g/30 mL oral PO, ONCE, if no 2017 Medical liquid bowel movement Center in couple days, # 300 ml, 0 Refill(s), Pharmacy: [facility]/pharmacy #[id number] Colace 100 mg oral 100 mg=1 cap, Active [place] capsule PO, BID, # 28 2017 Medical cap, 0 Center Refill(s), Pharmacy: [facility]/pharmacy #[id number] diazepam 5 mg oral 5 mg=1 tab, PO, Active [facility] tablet TID, PRN Spasm, 2017 Medical # 15 tab, 0 Center Refill(s) hydromorphone 0.2 mg, 0.1 mL, No Longer [facility] Route: IVP, Drug Active 2016 Medical form: INJ, Q3H, Center Dosing Weight 61.818, kg, PRN Pain Score 7-10, Start date: 03/31/17 10:13:00 CDT, Duration: 30 day, Stop date: 04/30/17 10:12:00 CSTNotes: Same as: Dilaudid Valium 5 mg, 1 tab, No Longer [place] Route: PO, Drug Active 2016 Medical form: TAB, TID, Center Dosing Weight 61.818, kg, PRN Spasm, Start date: 03/31/17 10:12:00 CDT, Duration: 30 day, Stop date: 04/30/17 10:11:00 CSTNotes: (Same as: Valium) hydromorphone 0.5 mg, 0.25 mL, Inactive [facility] Route: IV, Drug 2016 Medical form: INJ, ONCE, Center Dosing Weight 61.818, kg, Start date: 03/31/17 7:30:00 CDT, Stop date: 03/31/17 7:30:00 CDTNotes: Same as: Dilaudid Valium 5 mg, Route: IV, Inactive [place] ONCE, Dosing 2017 Medical Weight 61.818, Center kg, Start date: 03/31/17 6:58:00 CDT, Stop date: 03/31/17 6:58:00 CDT ceFAZolin (SCIP) + 2 gm, Route: No Longer [facility] sodium chloride IVPB, Drug form: Active 2017 [...] Flush 0.9% 10 ml, Route: No Longer [facility] IVP, Drug Form: Active 2017 Medical INJ, Dosing Center Weight 61.818, kg, Q12H, Start date: 03/30/17 21:00:00 CDT, Duration: 30 day, Stop date: 04/29/17 9:00:00 CSTNotes: (Same as: BD Posiflush) docusate 100 mg, 1 cap, No Longer [facility] Route: PO, Drug Active 2016 Medical form: CAP, Q12H, Center Dosing Weight 61.818, kg, Start date: 03/30/17 21:00:00 CDT, Duration: 30 day, Stop date: 04/29/17 9:00:00 CSTNotes: (Same as: Colace) senna 8.6 mg, 1 tab, No Longer [facility] Route: PO, Drug Active 2016 Medical Form: TAB, Center Dosing Weight 61.818, kg, Q12H, Start date: 03/30/17 21:00:00 CDT, Duration: 30 day, Stop date: 04/29/17 9:00:00 CSTNotes: (Same as: Senokot) metoclopramide 10 mg, 2 mL, No Longer [facility] Route: IVP, Drug Active 2016 Medical form: INJ, Q6H, Center Dosing Weight 61.818, kg, Start date: 03/30/17 18:00:00 CDT, Duration: 48 hr, Stop date: 04/01/17 12:00:00 CDTNotes: (Same as: Reglan) Saline Flush 0.9% 10 ml, Route: No Longer [place] IVP, Drug Form: Active 2016 Medical INJ, Dosing Center Weight 61.818, kg, PRN, PRN Line Flush, Start date: 03/30/17 17:42:00 CDT, Duration: 30 day, Stop date: 04/29/17 16:41:00 CSTNotes: (Same as: BD Posiflush) morphine Sulfate 2 mg, 0.5 mL, No Longer [place] Route: IVP, Drug Active 2016 Medical form: SOLN, Q2H, Center Dosing Weight 61.818, kg, PRN Pain Score 7-10, Start date: 03/30/17 17:42:00 CDT, Duration: 30 day, Stop date: 04/29/17 17:41:00 CSTNotes: (Same as:MORPhine Sulfate) acetaminophen-hydr 1 tab, Route: No Longer [place] ocodone 325 mg-10 PO, Drug Form: Active 2016 Medical mg oral tablet TAB, Dosing Center Weight 61.818, kg, Q4H, PRN Pain Score 4-6, Start date: 03/30/17 17:42:00 CDT, Duration: 30 day, Stop date: 04/29/17 17:41:00 CSTNotes: (Same as: M[place] 325/10) ondansetron 4 mg, 2 mL, No Longer [place] Route: IVP, Drug Active 2016 Medical form: INJ, Q8H, Center Dosing Weight 61.818, kg, PRN Nausea & Vomiting, Start date: 03/30/17 17:42:00 CDT, Duration: 30 day, Stop date: 04/29/17 17:41:00 CSTNotes: (Same as: Zofran) MEDICATION WASTE Product Size: 4 mg Product Wasted: _0__ mg sodium chloride 1,000 mL, Rate: No Longer [place] 0.9% 1000 ml INJ 100 ml/hr, Active 2016 Medical 1,000 mL Infuse over: 10 Center hr, Route: IV, Dosing Weight 61.818 kg, Total Volume: 1,000, Start date: 03/30/17 17:42:00 CDT, Stop date: 04/29/17 17:41:00 REMELT FURNACE EXPEDITER hydromorphone Route: IV, Drug Inactive [facility] (ANES) form: INJ, ONCE, 2016 Medical Stop date: [place] 03/30/17 17:04:00 CDT ondansetron (ANES) Route: IV, Drug Inactive [facility] form: INJ, ONCE, 2016 Medical Stop date: [place] 16:30:00 CDT famotidine (ANES) Route: IV, Drug Inactive [facility] form: INJ, ONCE, 2016 Medical Stop date: [place] 16:30:00 CDT glycopyrrolate Route: IV, Drug Inactive [facility] (ANES) form: INJ, ONCE, 2016 Medical Stop date: [place] 03/30/17 15:20:00 CDT ePHEDrine (ANES) Route: IV, Drug Inactive [facility] form: INJ, ONCE, 2016 Medical Stop date: [place] 03/30/17 13:55:00 CDT ceFAZolin (ANES) Route: IV, Drug Inactive [facility] form: INJ, ONCE, 2016 Medical Stop date: [place] 03/30/17 13:55:00 CDT propofol (ANES) Route: IV, Drug Inactive [facility] form: INJ, ONCE, 2016 Medical Stop date: [place] 03/30/17 13:25:00 CDT lidocaine (ANES) Route: IV, Drug Inactive [facility] form: INJ, ONCE, 2016 Medical Stop date: [place] 03/30/17 13:25:00 CDT rocuronium (ANES) Route: IV, Drug Inactive [facility] form: INJ, ONCE, 2016 Medical Stop date: [place] 03/30/17 13:25:00 CDT fentaNYL (ANES) Route: IV, Drug Inactive [facility] form: INJ, ONCE, 2016 Medical Stop date: [place] 03/30/17 13:25:00 CDT ANES esmolol 10 mg, 1 mL, Inactive [facility] Route: IVP, Drug 2016 Medical form: INJ, Center Q5Min, Dosing Weight 61.818, kg, PRN Other -See Comment, Start date: 03/30/17 13:22:00 CDT, Duration: 5 doses or times, Stop date: 03/31/17 0:00:00 CDTNotes: (Same as: Brevibloc) ANES acetaminophen 1,000 mg, 2 tab, Inactive [facility] Route: PO, Drug 2016 Medical form: TAB, ONCE, Center Dosing Weight 61.818, kg, PRN Pain Score 1-3, Start date: 03/30/17 13:22:00 CDT, Duration: 1 doses or times, Stop date: Limited # of timesNotes: Max acetaminophen 4000 mg/day (4 gm/day). (Same as: Tylenol Extra Strength) ANES fentaNYL 25 microgram, Inactive [facility] 0.5 mL, Route: 2017 Medical IVP, Drug form: Center INJ, Q5Min, Dosing Weight 61.818, kg, PRN Pain Score 4-6, Priority: Routine, Start date: 03/30/17 13:22:00 CDT, Duration: 4 doses or times, Stop date: 03/31/17 0:00:00 CDTNotes: (Same as: Sublimaze) Preservative free. ANES HYDROmorphone 0.5 mg, 0.25 mL, Inactive [facility] Route: IVP, Drug 2016 Medical form: INJ, Center Q5Min, Dosing Weight 61.818, kg, PRN Pain Score 7-10, Start date: 03/30/17 13:22:00 CDT, Duration: 4 doses or times, Stop date: 03/31/17 0:00:00 CDTNotes: Same as: Dilaudid ANES flumazenil 0.2 mg, 2 mL, Inactive [facility] Route: IVP, Drug 2016 Medical form: INJ, PRN, Center Dosing Weight 61.818, kg, PRN Benzodiazepine Reversal, Initial dose, Start date: 03/30/17 13:22:00 CDT, Duration: 30 day, Stop date: 04/29/17 12:21:00 CSTNotes: (Same as: Romazicon) ANES naloxone 0.4 mg, 1 mL, Inactive [facility] Route: IVP, Drug 2016 Medical form: INJ, [...] (ANES) Volume: 1,000, 2016 Medical Start date: [place] 03/30/17 12:49:00 CDT, Stop date: 03/30/17 13:49:00 [...] Flush 0.9% 10 ml, Route: No Longer [place] IVP, Drug Form: Active 2015 Medical INJ, Dosing Center Weight 59.091, kg, Q12H, Start date: 04/20/16 21:00:00 REMELT FURNACE EXPEDITER, Duration: 30 day, Stop date: 05/20/16 9:00:00 CSTNotes: (Same as: BD Posiflush) Famotidine 20 mg, 1 tab, No Longer Route: PO, Drug Active 2015 Medical form: TAB, Q12H, Center Dosing Weight 59.091, kg, Start date: 04/20/16 21:00:00 REMELT FURNACE EXPEDITER, Duration: 30 day, Stop date: 05/20/16 9:00:00 CSTNotes: (Same as: Pepcid) Docusate 100 mg, 1 cap, No Longer [place] Route: PO, Drug Active 2015 Medical form: CAP, Q12H, Center Dosing Weight 59.091, kg, Start date: 04/20/16 21:00:00 REMELT FURNACE EXPEDITER, Duration: 30 day, Stop date: 05/20/16 9:00:00 CSTNotes: (Same as: Colace) (Do Not Crush) sennosides, PRISON 8.6 mg, 1 tab, No Longer [place] Route: PO, Drug Active 2015 Medical Form: TAB, Center Dosing Weight 59.091, kg, Q12H, Start date: 04/20/16 21:00:00 REMELT FURNACE EXPEDITER, Duration: 30 day, Stop date: 05/20/16 9:00:00 CSTNotes: (Same as: Senokot) ceFAZolin (SCIP) 1 gm, Route: No Longer [place] IVPB, Drug form: Active 2016 Medical PDR/INJ, ABXQ8H, Center Dosing Weight 59.091, kg, Start date: 04/20/16 16:00:00 REMELT FURNACE EXPEDITER, Duration: 3 doses or times, Stop date: 04/21/16 8:00:00 CSTNotes: (Same As: Sugey Burr) MEDICATION WASTE Product Size: 1000 mg Product Wasted: ___ mg Acetaminophen 325 1 tab, Route: No Longer [place] MG / Hydrocodone PO, Drug Form: Active 2015 Medical Bitartrate 10 MG TAB, Dosing Center Oral Tablet [[place] Weight 59.091, 10/325] kg, Q4H, Start date: 04/20/16 12:00:00 REMELT FURNACE EXPEDITER, Duration: 30 day, Stop date: 05/20/16 8:00:00 CSTNotes: Do not exceed 4gm/day of acetaminophen. (Same as: M[place]omb 325/10) Dexamethasone 4 mg, 1 tab, No Longer [place] Route: PO, Drug Active 2015 Medical form: TAB, Q6H, Center Dosing Weight 59.091, kg, Start date: 04/20/16 12:00:00 REMELT FURNACE EXPEDITER, Duration: 30 day, Stop date: 05/20/16 6:00:00 CSTNotes: Give with food. (Same As: Decadron) Dextrose 50% 25 gm, 50 mL, No Longer [facility] Syringe Route: IVP, Drug Active 2015 Medical Form: INJ, Center Dosing Weight 59.091, kg, PRN, PRN Abnormal Lab Result, Start date: 04/20/16 11:00:00 REMELT FURNACE EXPEDITER, Duration: 30 day, Stop date: 05/20/16 10:59:00 REMELT FURNACE EXPEDITER Regular Insulin, 7 unit, 0.07 mL, No Longer [place] Human 100 UNT/ML Route: SUB-Q, Active 2015 Medical Injectable Drug form: SOLN, Center Solution PRN, Dosing Weight 59.091, kg, PRN Abnormal Lab Result, Start date: 04/20/16 11:00:00 REMELT FURNACE EXPEDITER, Duration: 30 day, Stop date: 05/20/16 10:59:00 [...] Flush 0.9% 10 ml, Route: No Longer [place] IVP, Drug Form: Active 2015 Medical INJ, Dosing Center Weight 59.091, kg, PRN, PRN Line Flush, Start date: 04/20/16 11:00:00 REMELT FURNACE EXPEDITER, Duration: 30 day, Stop date: 05/20/16 10:59:00 CSTNotes: (Same as: BD Posiflush) Dilaudid 0.5 mg, 0.25 mL, No Longer [place] Route: IV, Drug Active 2015 Medical form: INJ, Q3H, Center Dosing Weight 59.091, kg, PRN Pain Score 7-10, Start date: 04/20/16 11:00:00 REMELT FURNACE EXPEDITER, Duration: 30 day, Stop date: 05/20/16 10:59:00 CSTNotes: Same as Dilaudid Ondansetron 4 mg, 2 mL, No Longer [place] Route: IVP, Drug Active 2015 Medical form: INJ, Q8H, Center Dosing Weight 59.091, kg, PRN Nausea & Vomiting, Start date: 04/20/16 11:00:00 REMELT FURNACE EXPEDITER, Duration: 30 day, Stop date: 05/20/16 10:59:00 CSTNotes: (Same as: Noel) MEDICATION WASTE Product Size: 4 mg Product Wasted: ___ mg Metoclopramide 10 mg, 2 mL, No Longer [place] Route: IVP, Drug Active 2015 Medical form: INJ, Q6H, Center Dosing Weight 59.091, kg, PRN as needed for nausea/vomiting, Start date: 04/20/16 11:00:00 REMELT FURNACE EXPEDITER, Duration: 30 day, Stop date: 05/20/16 10:59:00 CSTNotes: (Same as: Reglan) Sodium Chloride 1,000 mL, Rate: No Longer [place] 0.154 MEQ/ML 50 ml/hr, Infuse Active 2015 Medical Injectable over: 20 hr, Center Solution Route: IV, Dosing Weight 59.091 kg, Total Volume: 1,000, Start date: 04/20/16 11:00:00 REMELT FURNACE EXPEDITER, Stop date: 05/20/16 10:59:00 REMELT FURNACE EXPEDITER Acetaminophen 325 1 tab, Route: No Longer [facility] MG / Hydrocodone PO, Drug Form: Active 2016 Medical Bitartrate 10 MG TAB, Dosing Center Oral Tablet Weight 59.091, kg, Q4H, PRN Pain Score 4-6, Start date: 04/20/16 11:00:00 REMELT FURNACE EXPEDITER, Duration: 30 day, Stop date: 05/20/16 10:59:00 CSTNotes: Do not exceed 4gm/day of acetaminophen. (Same as: M[place]omb 325/10) Promethazine 6.25 mg, Route: Inactive [place] IVPB, ONCE, 2015 Medical Dosing Weight Center 57.727, kg, PRN Nausea & Vomiting, Start date: 04/20/16 7:17:00 REMELT FURNACE EXPEDITER Ondansetron 4 mg, 2 mL, Inactive [facility] Route: IVP, Drug 2015 Medical form: INJ, ONCE, Center Dosing Weight 57.727, kg, PRN Nausea & Vomiting, Start date: 04/20/16 7:17:00 CSTNotes: (Same as: Zofran) MEDICATION WASTE Product Size: 4 mg Product Wasted: ___ mg Flumazenil 0.2 mg, 2 mL, Inactive [facility] Route: IVP, Drug 2015 Medical form: INJ, PRN, Center Dosing Weight 57.727, kg, PRN Benzodiazepine Reversal, Initial dose, Start date: 04/20/16 7:17:00 REMELT FURNACE EXPEDITER, Duration: 30 day, Stop date: 05/20/16 7:16:00 CSTNotes: (Same as: Romazicon) Naloxone 0.4 mg, 1 mL, Inactive [facility] Route: IVP, Drug 2015 Medical form: INJ, Center Q2MIN, Dosing Weight 57.727, kg, PRN Narcotic Reversal, Start date: 04/20/16 7:17:00 REMELT FURNACE EXPEDITER, Duration: 8 doses or times, Stop date: 04/21/16 0:00:00 CSTNotes: Same as Narcan Ephedrine 5 mg, Route: Inactive [facility] IVP, Q5Min, 2015 Medical Dosing Weight Center 57.727, kg, PRN Low Blood Pressure, Start date: 04/20/16 7:17:00 REMELT FURNACE EXPEDITER, Duration: 30 day, Stop date: 05/20/16 7:16:00 REMELT FURNACE EXPEDITER Hydromorphone 0.5 mg, 0.25 mL, Inactive [facility] Route: IVP, Drug 2015 Medical form: INJ, Center Q5Min, Dosing Weight 57.727, kg, PRN Pain Score 7-10, Start date: 04/20/16 7:17:00 REMELT FURNACE EXPEDITER, Duration: 4 doses or times, Stop date: 04/21/16 0:00:00 CSTNotes: Same as Dilaudid Labetalol 10 mg, Route: Inactive [facility] IVP, Q5Min, 2015 Medical Dosing Weight Center 57.727, kg, PRN Elevated BP, Start date: 04/20/16 7:17:00 REMELT FURNACE EXPEDITER, Duration: 5 doses or times, Stop date: Limited # of times Metoprolol 1 mg, Route: Inactive [facility] IVP, Q5Min, 2015 Medical Dosing Weight [facility] 57.727, kg, PRN Other -See Comment, Start date: 04/20/16 7:17:00 REMELT FURNACE EXPEDITER, Duration: 5 doses or times, Stop date: Limited # of times esmolol 10 mg, Route: Inactive [facility] IVP, Q5Min, 2015 Medical Dosing Weight [facility] 57.727, kg, PRN Other -See Comment, Start date: 04/20/16 7:17:00 REMELT FURNACE EXPEDITER, Duration: 5 doses or times, Stop date: Limited # of times Hydralazine 10 mg, Route: Inactive [facility] IVP, Q20Min, 2015 Medical Dosing Weight Center 57.727, kg, PRN Elevated BP, Start date: 04/20/16 7:17:00 REMELT FURNACE EXPEDITER, Duration: 2 doses or times, Stop date: Limited # of times ceFAZolin 2 gm, 100 mL, Inactive [facility] Route: IVPB, 2015 Medical Drug form: INJ, Center PRE OP, Start date: 04/20/16 1:00:00 REMELT FURNACE EXPEDITER, Duration: 1 day, Stop date: 04/21/16 0:59:00 [...] Infuse 2016 Medical Injectable Over: 1 hr, [place] Solution Route: IV, 500, Drug form: INJ, [...] Posiflush) Sulfamethoxazole 1 tab, Route: No Longer [place] 800 MG / PO, Drug Form: Active [...] DS) Ceftriaxone 1 gm, Route: No Longer [place] IVPB, Drug form: Active 2015 Medical PDR/INJ, Center [id number], Dosing Weight 59.091, kg, Start date: 03/23/16 7:00:00 CDT, Duration: 3 day, Stop date: 03/25/16 7:00:00 CDTNotes: (Same As: Rocephin). 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 (Same as: Tylenol) Iron Chews 15 mg, PO, Active [place] Daily, 0 2015 Medical Refill(s) Center NuvaRing 1 ea, VAG, q4wk, Active [facility] 0 Refill(s) 2015 [facility] Iohexol 60 mL, Route: Inactive [place] IVP, Drug Form: 2015 [facility], Dosing Center Weight 59.091, kg, ONCALL, STAT, Start date: 03/23/16 2:41:00 CDT, Duration: 1 doses or times, Dose=2.2ml/kg, Max [id number] -- "To be infused by Radiology Staff ONLY" Iohexol 60 mL, Route: Inactive [place] [facility] 59.091, kg, ONCALL, STAT, Start date: 03/23/16 1:42:00 CDT, Duration: 1 doses or times, Dose=2.2ml/kg, Max gfrc=[id number] -- "To be infused by Radiology Staff ONLY"Notes: (same as:Omnipaque 350). WASTE: F/P - Black; E - [facility] Aspirin 81 mg, 1 tab, No Longer [place] Route: PO, Drug Active 2015 Medical form: [place], [place] ONCE, kg, Start date: 03/22/16 23:41:00 CDT, Stop date: 03/22/16 23:41:00 CDTNotes: Take with food. Saline Flush 0.9% 10 ml, Route: No Longer [place] IVP, Drug Form: Active 2015 Medical INJ, kg, PRN, [place] PRN Line Flush, Start date: 03/22/16 22:39:00 [...] [place] OPID vaccine, 6 deltoid Delvis, inactivated [facility] influenza virus Right completed [place] OPID vaccine, 6 deltoid Delvis, inactivated OPID [place] influenza virus Right completed [place] OPID vaccine, 6 deltoid Delvis, inactivated [facility] - [place],Misc her Neuro Results Order Name Results Value Reference Date Interpretation Comments Source Range Brain w/wo Brain w/wo Patient Name: SUDHEER REYES 01/18 - OPID contrast contrast MRI /2017 - [place] [facility] : 1985; Age: 32 years y/o Female [place] MR: [id number] Read by: Jay Pope MD Dictated Date/time: [...] IV administration of 13 cc Dotarem FINDINGS: Adapted Physical Education Specialist artifact related to the shunt pontine the [...] - OPID contrast CT contrast CT /2016 [facility] Clinical Indication: - cerebral cyst Read by: [...] dimension. 3. No acute intracranial hemorrhage. SL: [id number] BLOOD BANK Antibody Negative 03/30 [facility] RESULTS Scr [facility] (03/30/17 11:37 AM) [place] BLOOD BANK ABO/Rh O NEG 03/30 [facility] /2016 [facility] ELECTROLYTE Sodium Lvl 143 meq/L 135 - 145 03/24 [facility] S /2016 [facility] ELECTROLYTE Creatinine 0.64 mg/dL 0.50 - 03/24 [facility] Lvl 1.40 [facility] ELECTROLYTE BUN 15 mg/dL 7 - 22 03/24 [facility] /2016 [facility] ELECTROLYTE Potassium 4.9 meq/L 3.5 - 5.1 03/24 [facility] ELECTROLYTE Calcium Lvl 9.5 mg/dL 8.5 - 10.5 03/24 [facility] /2016 [facility] ELECTROLYTE CO2 30 meq/L 24 - 32 03/24 [facility] ELECTROLYTE Chloride Lvl 107 meq/L 95 - 109 03/24 [facility] ELECTROLYTE Glucose Lvl 78 mg/dL 70 - 99 03/24 [facility] ELECTROLYTE eGFR 119 03/24 Result Comment: The eGFR is calculated using the CKD-EPI formula. In most young, healthy individuals the eGFR will be > 90 mL/min/1.73m2. The eGFR declines with age. An eGFR of 60-89 may be normal in [facility] mL/min/1.7 some populations, particularly the elderly, for whom the CKD-EPI formula has not been extensively validated. Use of the eGFR is not recommended in the following populations: [address] Individuals with unstable creatinine concentrations, including [...] ELECTROLYTE AGAP 10.9 meq/L 10.0 - 03/24 [facility] S 20.0 [facility] HEMATOLOGY WBC 8.9 K/CMM 3.7 - 10.4 03/24 [facility] HEMATOLOGY RBC 4.16 M/CMM 4.20 - 03/24 [facility] 5.40 [facility] HEMATOLOGY RDW 12.8 % 11.5 - 03/24 [place] 14. [facility] HEMATOLOGY MPV 9.4 fL 7.4 - 10.4 03/24 [facility] HEMATOLOGY Platelet 278 K/CMM 133 - 450 03/24 [facility] HEMATOLOGY Hgb 12.8 g/dL 12.0 - 03/24 [place] 16.0 [facility] HEMATOLOGY MCH 30.7 pg 27.0 - 03/24 [place] 31.0 [facility] HEMATOLOGY Hct 37.4 % 36.0 - 03/24 [place] 48.0 [facility] HEMATOLOGY MCV 89.8 fL 80.0 - 03/24 [place] 98.0 [facility] HEMATOLOGY MCHC 34.2 g/dL 32.0 - 03/24 [place] 36.0 [facility] HEMATOLOGY Lymphocytes 2.5 K/CMM 1.0 - 5.5 03/24 [place] /2017 [facility] HEMATOLOGY Monocytes # 0.7 K/CMM 0.0 - 0.8 03/24 [facility] HEMATOLOGY Eosinophils 0.1 K/CMM 0.0 - 0.5 03/24 [facility] HEMATOLOGY Basophils # 0.1 K/CMM 0.0 - 0.2 03/24 [facility] HEMATOLOGY Basophils 0.7 % 0.0 - 1.0 03/24 [facility] HEMATOLOGY Segs-Bands # 5.6 K/CMM 1.5 - 8.1 03/24 [facility] HEMATOLOGY Segs 62.5 % 45.0 - 03/24 [place] 75.0 [facility] HEMATOLOGY Lymphocytes 27.6 % 20.0 - 03/24 [place] 40.0 [facility] HEMATOLOGY Eosinophils 0.9 % 0.0 - 4.0 03/24 [facility] HEMATOLOGY Monocytes 8.3 % 2.0 - 12.0 03/24 [facility] Brain w/wo Brain w/wo 02/24 - [facility] contrast contrast MRI /2016 [facility] MRI EXAMINATION: MRI brain with and without [...] OPID contrast CT contrast CT /2016 - [facility] INDICATION: ARACHNOID CYST Read by: Jaky [...] - [place]vis MRI DATE: 06/02/2016 10:00 AM [employer]EL[employer] F[employer]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 In most young, healthy individuals the eGFR will be > 90 mL/min/1.73m2. The eGFR declines with age. An eGFR of 60-89 may be normal in [facility] mL/min/1.7 some populations, particularly the elderly, for whom the CKD-EPI formula has not been extensively validated. Use of the eGFR is not recommended in the following populations: [address] Individuals with unstable creatinine concentrations, including [...] Lvl 111 mg/dL 70 - 99 04/20 [facility] ELECTROLYTE BUN 16 mg/dL 7 - 22 04/20 [facility]2015 [facility] ELECTROLYTE Sodium Lvl 142 meq/L 135 - 145 04/[address] ELECTROLYTE CO2 20 meq/L 24 - 32 04/[address] ELECTROLYTE Creatinine 0.68 mg/dL 0.50 - 04/20 [facility] Lvl 1.40 [facility] ELECTROLYTE Potassium 3.9 meq/L 3.5 - 5.1 04/20 [facility] ELECTROLYTE Calcium Lvl 8.8 mg/dL 8.5 - 10.5 04/[address] ELECTROLYTE Chloride Lvl 110 meq/L 95 - 109 04/20 [facility]2015 [facility] HEMATOLOGY PT 16.3 s 12.0 - 04/20 [place] 14.7 /2016 [facility] HEMATOLOGY INR 1.29 0.85 - 04/20 [place] 1.17 /2015 [facility] HEMATOLOGY PTT 27.7 s 22.9 - 04/20 [place] 35.8 /2016 [facility] HEMATOLOGY MCV 88.8 fL 80.0 - 04/20 [place] 98.0 /2016 [facility] HEMATOLOGY MPV 8.2 fL 7.4 - 10.4 04/20 [facility] HEMATOLOGY RDW 12.6 % 11.5 - 04/20 [place] 14.5 /2016 [facility] HEMATOLOGY Platelet 258 K/CMM 133 - 450 04/20 [facility] HEMATOLOGY MCH 30.1 pg 27.0 - 04/20 31.0 /2016 [facility] HEMATOLOGY MCHC 33.9 g/dL 32.0 - 04/20 36.0 /2015 [facility] HEMATOLOGY Hgb 11.0 g/dL 12.0 - 04/20 16.0 /2015 [facility] HEMATOLOGY Hct 32.3 % 36.0 - 04/20 [place] 48.0 /2016 [facility] HEMATOLOGY WBC 4.6 K/CMM 3.7 - 10.4 04/20 [facility] HEMATOLOGY RBC 3.64 M/CMM 4.20 - 04/20 [place] 5.40 /2016 [facility] HEMATOLOGY Lymphocytes 24.5 % 20.0 - 04/20 [place] 40.0 /2016 [facility] HEMATOLOGY Segs 72.5 % 45.0 - 04/20 75.0 /2016 [facility] HEMATOLOGY Monocytes 2.3 % 2.0 - 12.0 04/20 [facility] HEMATOLOGY Eosinophils 0.1 % 0.0 - 4.0 04/20 [facility] HEMATOLOGY Segs-Bands # 3.3 K/CMM 1.5 - 8.1 04/20 [facility] HEMATOLOGY Basophils 0.6 % 0.0 - 1.0 04/20 [facility] HEMATOLOGY Lymphocytes 1.1 K/CMM 1.0 - 5.5 04/20 # /2015 [facility] HEMATOLOGY Monocytes # 0.1 K/CMM 0.0 - 0.8 04/20 [facility] BLOOD BANK ABO/Rh O NEG 04/20 [facility] RESULTS /2015 [facility] BLOOD BANK Antibody Negative 04/20 [facility] RESULTS [facility] (04/20/16 6:00 AM) [place] HEMATOLOGY PTT 28.6 s 22.9 - 04/16 [place] 35.8 /2015 [facility] HEMATOLOGY INR 1.16 0.85 - 04/16 [place] 1.17 [facility] HEMATOLOGY PT 15.0 s 12.0 - 04/16 [place] 14.7 /2015 [facility] HEMATOLOGY Angle 76.9 53.0 - 04/16 [facility] degrees 72.0 [facility] HEMATOLOGY Max Amp 69.7 mm 50.0 - 04/16 [place] 70.0 [facility] HEMATOLOGY Ly30 3.4 % 0.0 - 7.5 04/16 /2015 [facility] HEMATOLOGY G-value 11.5 K 4.5 - 11.0 04/16 [facility] d/sc /2015 [facility] HEMATOLOGY R-time 3.7 min 5.0 - 10.0 04/16 [facility] HEMATOLOGY K-time 0.8 min 1.0 - 3.0 04/16 [facility] HEMATOLOGY Coag Index 3.9 -3.0-3.0 - 04/16 [facility] 3.0 [facility] HEMATOLOGY TEG Data See Note 04/16 [facility] (04/16/16 11:15 AM) [place] HEMATOLOGY TEG Interp Thrombelas 04/16 [facility] tograph [facility] show shortened value of R and increased value of Angle Alpha. 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 - [facility] contrast contrast /2015 - [place] [facility] HISTORY: Arachnoid cyst. Read by: Keagan [...] Phosphorus 3.6 mg/dL 2.5 - 4.5 03/24 [facility] CHEM PANEL Magnesium 2.3 mg/dL 1.8 - 2.4 03/24 [facility] CHEM PANEL eGFR 96 03/24 Result Comment: The eGFR is calculated using the CKD-EPI formula. In most young, healthy individuals the eGFR will be >90 mL/ min/1.73m2. The eGFR declines with age. An eGFR of 60-89 may be normal in [facility] mL/min/1.7 some populations, particularly the elderly, for whom the CKD-EPI formula has not been extensively validated. Use of the eGFR is not recommended in the following populations: [address] Individuals with unstable creatinine concentrations, including [...] Lvl 9.2 mg/dL 8.5 - 10.5 03/24 [facility] CHEM PANEL CO2 19 meq/L 24 - 32 03/24 [facility] CHEM PANEL Chloride Lvl 108 meq/L 95 - 109 03/24 [facility] CHEM PANEL Sodium Lvl 139 meq/L 135 - 145 03/24 [facility] CHEM PANEL Potassium 4.0 meq/L 3.5 - 5.1 03/24 [facility] CHEM PANEL Creatinine 0.82 mg/dL 0.50 - 1018 [place] Lvl 1.40 /2016 [facility] CHEM PANEL BUN 10 mg/dL 7 - 22 03/24 /2015 [facility] CHEM PANEL Glucose Lvl 72 mg/dL 70 - 99 03/24 /2015 [facility] CHEM PANEL AGAP 16.0 meq/L 10.0 - 03/24 [place] 20.0 /2016 [facility] HEMATOLOGY Hgb 12.4 g/dL 12.0 - 03/24 [place] 16.0 /2016 [facility] HEMATOLOGY Hct 36.5 % 36.0 - 03/24 [place] 48.0 /2016 [facility] HEMATOLOGY WBC 6.4 K/CMM 3.7 - 10.4 03/24 /2015 [facility] HEMATOLOGY MCH 30.4 pg 27.0 - 03/24 [place] 31.0 2016 [facility] HEMATOLOGY Platelet 274 K/CMM 133 - 450 03/24 /2015 [facility] HEMATOLOGY RDW 12.6 % 11.5 - 03/24 [place] 14.5 /2016 [facility] HEMATOLOGY MPV 8.6 fL 7.4 - 10.4 03/24 /2016 [facility] HEMATOLOGY RBC 4.08 M/CMM 4.20 - 03/24 [place] 5.40 /2016 [facility] HEMATOLOGY MCHC 33.9 g/dL 32.0 - 03/24 [place] 36.0 /2016 [facility] HEMATOLOGY MCV 89.5 fL 80.0 - 03/24 [place] 98.0 /2016 [facility] HEMATOLOGY Basophils # 0.1 K/CMM 0.0 - 0.2 03/24 /2015 [facility] HEMATOLOGY Eosinophils 0.1 K/CMM 0.0 - 0.5 03/24 [place] # /2016 [facility] HEMATOLOGY Segs-Bands # 3.2 K/CMM 1.5 - 8.1 03/24 /2016 [facility] HEMATOLOGY Lymphocytes 2.6 K/CMM 1.0 - 5.5 03/24 [place] # /2016 [facility] HEMATOLOGY Monocytes # 0.4 K/CMM 0.0 - 0.8 03/24 /2016 [facility] HEMATOLOGY Lymphocytes 40.6 % 20.0 - 03/24 [place] 40.0 /2016 [facility] HEMATOLOGY Basophils 0.9 % 0.0 - 1.0 03/24 /2015 [facility] HEMATOLOGY Monocytes 7.0 % 2.0 - 12.0 10/18 [facility] HEMATOLOGY Eosinophils 1.9 % 0.0 - 4.0 03/24 [facility] HEMATOLOGY Segs 49.6 % 45.0 - 03/24 [place] 75.0 [facility] PARATHYROID Ca Norm WB 1.08 1.05 - 03/24 [facility] PROFILE mMol/L 1. [facility] PARATHYROID Ca Ion WB 1.10 1.05 - 03/24 [facility] PROFILE mMol/L 1. [facility] HEMATOLOGY Hgb 11.0 g/dL 12.0 - 03/24 [facility] 16.0 [facility] HEMATOLOGY Hct 32.5 % 36.0 - 03/24 [facility] 48.0 [facility] ANEMIA Vitamin B12 200 pg/mL 254 - 1320 03/23 [facility] STUDY Lv [facility] HEMATOLOGY Hgb 11.6 g/dL 12.0 - 03/23 [facility] 16. [facility] HEMATOLOGY Hct 33.5 % 36.0 - 03/23 [facility] 48.0 [facility] Pelvis w/wo Pelvis w/wo EXAM: MRA PELVIS WITH AND WITHOUT CONTRAST 03/23 - [facility] contrast contrast MRV /2015 - [facility] MRV This report was dictated by a Account Technician/Fellow. I have personally reviewed the images as [...] EXAM: US BILATERAL LOWER EXTREMITY VENOUS DOPPLER [facility] Venous Venous - Medical Doppler Doppler This report was dictated by a Account Technician/ Fellow. I have personally reviewed the images [...] US Thyroid US EXAM: US THYROID 03/23 [facility] - Medical This report was dictated by a Account Technician/Fellow. I have personally reviewed the images as [...] [id number]. CARDIAC Troponin-I null 0.00 - 03/23 [facility] ENZYMES 0.40 /2015 [facility] CARDIAC Troponin-I null 0.00 - 03/23 [facility] ENZYMES 0.40 [facility] CHEM PANEL eGFR 119 03/23 Result Comment: The eGFR is calculated using the CKD-EPI formula. In most young, healthy individuals the eGFR will be >90 mL/ min/1.73m2. The eGFR declines with age. An eGFR of 60-89 may be normal in [facility] mL/min/1.7 some populations, particularly the elderly, for whom the CKD-EPI formula has not been extensively validated. Use of the eGFR is not recommended in the following populations: [address] Individuals with unstable creatinine concentrations, including [...] Lvl 143 meq/L 135 - 145 03/23 [facility] CHEM PANEL ALT 24 unit/L 0 - 65 03/23 [facility] CHEM PANEL AST 17 unit/L 0 - 37 03/23 [facility] CHEM PANEL Potassium 4.0 meq/L 3.5 - 5.1 03/23 [facility] Lvl [facility] CHEM PANEL Creatinine 0.67 mg/dL 0.50 - 03/23 [facility] Lvl 1.40 [facility] CHEM PANEL Calcium Lvl 8.9 mg/dL 8.5 - 10.5 03/23 [facility] CHEM PANEL Total 6.3 g/dL 6.4 - 8.4 03/23 [facility] CHEM PANEL Albumin Lvl 3.4 g/dL 3.5 - 5.0 03/23 [facility] CHEM PANEL Chloride Lvl 110 meq/L 95 - 109 03/23 [facility] CHEM PANEL CO2 21 meq/L 24 - 32 03/23 [facility] CHEM PANEL Alk Phos 45 unit/L 39 - 136 03/23 [facility] CHEM PANEL Bili Total 0.5 mg/dL 0.2 - 1.3 03/23 [facility] CHEM PANEL Glucose Lvl 81 mg/dL 70 - 99 03/23 [facility] CHEM PANEL BUN 15 mg/dL 7 - 22 03/23 [facility] CHEM PANEL AGAP 16.0 meq/L 10.0 - 03/23 [place] 20.0 [facility] CHEM PANEL B/C Ratio 22 6 - 25 03/23 [facility] CHEM PANEL Globulin 2.9 g/dL 2.7 - 4.2 03/23 [facility] CHEM PANEL A/G Ratio 1.2 0.7 - 1.6 03/23 [facility] HEMATOLOGY Segs 47.7 % 45.0 - 03/23 [facility] 75.0 [facility] HEMATOLOGY Eosinophils 1.1 % 0.0 - 4.0 03/23 [facility] HEMATOLOGY Basophils 0.8 % 0.0 - 1.0 03/23 [facility] HEMATOLOGY Lymphocytes 43.9 % 20.0 - 03/23 [place] 40.0 /2016 [facility] HEMATOLOGY Monocytes 6.5 % 2.0 - 12.0 03/23 [facility] HEMATOLOGY Segs-Bands # 3.4 K/CMM 1.5 - 8.1 03/23 [facility] HEMATOLOGY Lymphocytes 3.1 K/CMM 1.0 - 5.5 03/23 [facility] HEMATOLOGY Basophils # 0.1 K/CMM 0.0 - 0.2 03/23 [facility] HEMATOLOGY Monocytes # 0.5 K/CMM 0.0 - 0.8 03/23 [facility] HEMATOLOGY Eosinophils 0.1 K/CMM 0.0 - 0.5 03/23 [facility] HEMATOLOGY RDW 12.3 % 11.5 - 03/23 [place] 14.5 /2016 [facility] HEMATOLOGY Platelet 248 K/CMM 133 - 450 03/23 [facility] HEMATOLOGY MPV 8.7 fL 7.4 - 10.4 03/23 /2015 [facility] HEMATOLOGY WBC 7.1 K/CMM 3.7 - 10.4 03/23 [facility] HEMATOLOGY RBC 3.43 M/CMM 4.20 - 03/23 [place] 5.40 /2015 [facility] HEMATOLOGY MCHC 34.3 g/dL 32.0 - 03/23 [place] 36.0 /2015 [facility] HEMATOLOGY MCV 88.5 fL 80.0 - 03/23 [place] 98.0 /2015 [facility] HEMATOLOGY MCH 30.3 pg 27.0 - 03/23 [place] 31.0 /2015 [facility] LIPIDS CHD Risk 2.13 3.90 - 03/23 [place] 5.80 /2015 [facility] LIPIDS VLDL 16 03/23 /2015 [facility] LIPIDS LDL 54 mg/dL <=99 mg/dL 03/23 [facility] (Calculated) [facility] LIPIDS Chol 132 mg/dL <=199 03/23 [place] mg/dL [facility] LIPIDS HDL 62 mg/dL >=61 mg/dL 03/23 [place] [facility] LIPIDS Trig 81 mg/dL <=149 03/23 [facility] mg/dL [facility] SPECIAL Hgb A1C 4.9 % <=5.6 % 03/23 [facility] CHEMISTRY /2015 [facility] URINE AND UA <=1.0 0.1 - 1.0 03/23 [facility] STOOL Urobilinogen mg/dL [facility] URINE AND UA RBC null 0 - 2 03/23 [facility] STOOL [facility] URINE AND UA Mucus Few /LPF None Seen 03/23 [facility] STOOL /LPF /2015 [facility] URINE AND UA Sq Epi Many /LPF Few /LPF 03/23 [facility] STOOL [facility] URINE AND UA WBC 162 /HPF 0 - 5 03/23 [facility] STOOL /2016 [facility] URINE AND UA Ketones TR 03/23 [facility] [place] [facility] URINE AND UA pH 5.5 5.0 - 8.0 03/23 [facility] STOOL 2016 [facility] URINE AND UA Protein 70 mg/dL Negative 03/23 [facility] STOOL mg/dL /2015 [facility] URINE AND UA Bili Negative Negative 03/23 [facility] [place] [facility] [place] (03/23/16 12:33 AM) URINE AND UA Blood Large Negative 03/23 [facility] [place] [facility] (03/23/16 12:33 AM) URINE AND UA Glucose Negative Negative 03/23 [facility] [place] [facility] mg/dL mg/dL [facility] URINE AND UA Turbidity Slight Clear 03/23 [facility] [place] [facility] (03/23/16 12:33 AM) URINE AND UA Spec Grav 1.019 <=1.030 03/23 [facility] [place] [facility] URINE AND UA Color Yellow Yellow 03/23 [facility] [place] [facility]16 12:33 AM[facility] URINE AND UA Nitrite Negative Negative 03/23 [facility] (03/23/16 12:33 AM) [place] URINE AND UA Leuk Est Large Negative 03/23 [facility] (03/23/16 12:33 AM) Brain wo Brain wo EXAM: MRI BRAIN WITHOUT CONTRAST 03/23 - [facility] contrast contrast MRI - [facility] DATE: 03/22/2016 11:36 PM CDT Read by: [...] Brain/Neck Brain/Neck EXAM: CTA BRAIN 03/23 - [facility] CTA CTA /2016 - Medical EXAM: CTA NECK This report was dictated by a Account Technician/ Fellow. I have personally reviewed the images [...] a normal variant. 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 [...] variants within the right vertebral artery and buck[place] of [place]. 3. Heterogeneous thyroid gland with subcentimeter nodules. This can be further evaluated with nonemergent thyroid ultrasound. (All qualitative and quantitative assessments of carotid bifurcation and proximal internal carotid artery stenosis are made referencing the distal internal carotid artery {NASCET criteria}.) Vital Signs Vital Sign Value Date Comments Source BMI Calculated 22.19 05/19/2017 [facility] Height 162.56 cm 05/19/2017 [facility] Weight 58.636 05/19/2017 [facility] Systolic (mm Hg) 109 05/19/2017 [facility] Diastolic (mm Hg) 74 05/19/2017 [facility] Temperature Oral (F) 98.3 F 05/19/2017 [facility] Heart Rate 85 05/19/2017 [facility] Respitory Rate 16 05/04/2017 [facility] Systolic (mm Hg) 100 05/04/2017 [facility] Diastolic (mm Hg) 60 05/04/2017 [facility] Systolic (mm Hg) 94 05/04/2017 [facility] Diastolic (mm Hg) 57 05/04/2017 [facility] Respitory Rate 15 05/04/2017 [facility] Systolic (mm Hg) 95 05/04/2017 [facility] Diastolic (mm Hg) 57 05/04/2017 [facility] Respitory Rate 13 05/04/2017 [facility] Heart Rate 68 05/04/2017 [facility] BMI Calculated 21.67 05/04/2017 [facility] Weight 57.273 05/04/2017 [facility] Height 162.56 cm 04/27/2017 [facility] Respitory Rate 16 04/02/2017 [facility] Systolic (mm Hg) 103 04/02/2017 [facility] Diastolic (mm Hg) 70 04/02/2017 [facility] Temperature Oral (F) 98.0 F 04/02/2017 [facility] Heart Rate 59 04/02/2017 [facility] Heart Rate 63 04/02/2017 [facility] Temperature Oral (F) 98.2 F 04/02/2017 [facility] Respitory Rate 16 04/02/2017 [facility] Systolic (mm Hg) 97 04/02/2017 [facility] Diastolic (mm Hg) 62 04/02/2017 [facility] Heart Rate 64 04/02/2017 [facility] Temperature Oral (F) 98.3 F 04/02/2017 [facility] Respitory Rate 16 04/02/2017 [facility] Systolic (mm Hg) 103 04/02/2017 [facility] Diastolic (mm Hg) 66 04/02/2017 [facility] Weight 61.818 03/30/2017 [facility] Height 163.83 cm 03/30/2017 [facility] BMI Calculated 23.03 03/30/2017 [facility] BMI Calculated 23.03 03/24/2017 [facility] Weight 61.818 03/24/2017 [facility] Height 163.83 cm 03/24/2017 [facility] Systolic (mm Hg) 94 04/21/2016 [facility] Diastolic (mm Hg) 55 04/21/2016 [facility] Respitory Rate 20 04/21/2016 [facility] Temperature Oral (F) 98.2 F 04/21/2016 [facility] Respitory Rate 23 04/21/2016 [facility] Systolic (mm Hg) 95 04/21/2016 [facility] Diastolic (mm Hg) 53 04/21/2016 [facility] Respitory Rate 14 04/21/2016 [facility] Systolic (mm Hg) 91 04/21/2016 [facility] Diastolic (mm Hg) 55 04/21/2016 [facility] Temperature Oral (F) 97.8 F 04/21/2016 [facility] Temperature Oral (F) 97.5 F 04/21/2016 [facility] BMI Calculated 21.17 04/21/2016 [facility] Weight 57.7 04/21/2016 [facility] Height 165.1 cm 04/21/2016 [facility] Weight 57.727 04/20/2016 [facility] BMI Calculated 21.18 04/20/2016 [facility] Height 165.1 cm 04/20/2016 [facility] Heart Rate 75 04/20/2016 [facility] Temperature Oral (F) 98.7 F 03/24/2016 [facility] Respitory Rate 16 03/24/2016 [facility] Heart Rate 77 03/24/2016 [facility] Systolic (mm Hg) 93 03/24/2016 [facility] Diastolic (mm Hg) 57 03/24/2016 [facility] Systolic (mm Hg) 100 03/24/2016 [facility] Diastolic (mm Hg) 64 03/24/2016 [facility] Heart Rate 61 03/24/2016 [facility] Temperature Oral (F) 98.0 F 03/24/2016 [facility] Respitory Rate 16 03/24/2016 [facility] Systolic (mm Hg) 96 03/24/2016 [facility] Diastolic (mm Hg) 55 03/24/2016 [facility] Heart Rate 88 03/24/2016 [facility] Temperature Oral (F) 98.3 F 03/24/2016 [facility] Respitory Rate 18 03/24/2016 [facility] Weight 59.091 03/23/2016 [facility] BMI Calculated 22.36 03/23/2016 [facility] Height 162.56 cm 03/23/2016 [facility] Encounters Location Location Encounter Encounter Reason Attending ADM DC Status Source Details Type Number For Provider Date Date Visit [facility] [id number] [facility] 03/23 03/24 [facility] 0 [facility] Outpt Diag [id number] [place] [facility] 03/31 04/01 [facility] [place] [facility] [id number] DELL L 04/01 [facility] [place] [facility] [id number] DELL L 04/20 [facility] Inpatient [id number] Dell Day 04/20 04/21 [facility] Outpatient [id number] DELL L 05/06 [facility] Outpt Diag [id number] Dell Day 06/02 06/03 [facility] [place] [facility] [id number] DELL L 06/10 [facility] [place] [facility]patient [id number] DELL L 07/22 [facility] Outpt Diag [id number] Dell Day 07/22 07/23 [facility] [id number] DELL L 02/24 [facility] Outpt Diag [id number] Dell Day 02/24 02/25 [facility] [place] [facility] [place] [facility] [id number] DELL L 03/30 [facility] [id number] [facility] Day 03/30 04/02 [facility] Outpt Diag [id number] Dell Day 04/09 04/10 [facility] [id number] DELL L 04/14 [facility] [place] [facility] Phone [id number] 04/23 04/25 [facility] Outpatient [id number] DELL L 05/04 [facility] [id number] Dell Day 05/04 05/05 [facility] Outpatient [id number] Dell Day 05/04 05/05 [facility] Phone [id number] 05/04 05/06 [facility] Outpatient [id number] DELL L 05/19 [facility] [place] [facility] Outpatient [id number] [place] Day 05/19 05/20 [facility] Outpatient [id number] DELL L 12/31 [facility] [place] [facility] [id number] XI[facility] 01/05 [facility] [place] Outpatient [id number] DELL L 01/26 [facility] [place] [facility] [id number] XI[facility] 02/15 [facility] [place] Outpatient [id number] DELL L 02/28 [facility] [place] [facility] [id number] DELL L 04/04 [facility] [place] Procedures Procedure Code Date Perfomer Comments Source Craniotomy [id number] [facility] [place] Gastric operation [id number] [facility] [place] Craniotomy [id number] [facility] Gastric operation [id number] [facility] Craniotomy [id number] [facility] [place] Gastric operation [id number] [facility] [place] Gastric operation [id number] [facility] [place] Craniotomy [id number] [facility] [id number] [facility] Gastric operation [id number] [facility] cyst peritoneal [id number] [facility] Craniotomy [id number] [facility] Gastric operation [id number] [facility]
[2018-03-13] MEDS ORDERED: MORPHINE 4 MG/ML SYR ONE ×2 (01:51→05:38)
[2018-03-13] MEDS ORDERED: NA CHLORIDE 0.9% 1,000 ML ONE (01:51)
[2018-03-13] MEDS ORDERED: ONDANSETRON 4 MG/2 ML VIAL ONE (01:52)
[2018-03-13 01:59] LABS: Absolute Lymphocytes (CBC) 1.8 K/uL (0.7-4.9); Absolute Monocytes 0.4 K/uL (0.1-1.3); Absolute Neutrophil 3.5 K/uL (1.8-8.0); Basophils % 0.7 % (0-1.3); Eosinophils % 1.5 % (0-4.4); Hematocrit 32.8 % (36.0-45.0); Lymphocytes % 31.2 % (15.3-44.8); MCH 31.1 pg (27.0-35.0); MPV 8.7 fL (7.6-11.3); Monocytes % 7.1 % (3.3-12.3)
[2018-03-13 02:13] LABS: BUN Blood Urea Nitrogen 13 mg/dL (7-18); Bicarbonate 28 mmol/L (21-32); Glucose Level 88 mg/dL (74-106); Potassium 3.8 mmol/L (3.5-5.1); Sodium Level 144 mmol/L (136-145)
--- NOTE | 2018-03-13 05:33 | ER ---
Nurse's Notes [facility] Name: Sangeetha Olivares Age: 32 yrs Sex: Female : 1985 Arrival Date: 03/13/2018 Time: 00:53 Bed 17 Private MD: Efren Greenberg Diagnosis: Severe headache. Chest pain. S/P Hysterectomy Presentation: 03/13 01:06 Presenting complaint: Patient states: she has a shunt in her brain for an arachnoid bb cyst and is having a severe headache pt had a hysterectomy here on and is having bad shoulder pain and pain in her rib cage as well she also states she has not been able to see up close since the surgery on , she is also feeling dizzy and light-headed. Transition of care: patient was not received from another setting of care. Onset of symptoms was March 10, 2018. Risk Assessment: Do you want to hurt yourself or someone else? Patient reports no desire to harm self or others. Initial Sepsis Screen: Does the patient meet any 2 criteria? No. Patient's initial sepsis screen is negative. Does the patient have a suspected source of infection? No. Patient's initial sepsis screen is negative. Care prior to arrival: None. 01:06 Method Of Arrival: Ambulatory bb 01:06 Acuity: ERIBERTO 2 bb Triage Assessment: 02:09 Pain: Pain at worst was 10 out of 10 on a pain scale. jd3 02:10 Headache History: The patient has had previous headaches. jd3 02:10 Pain: Pain began gradually. jd3 02:10 Pain: Also complains of no other associated symptoms. 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 - Social history:: Smoking status: Patient/guardian denies using tobacco, Patient/guardian denies using alcohol, street drugs. - Ebola Screening: : No symptoms or risks identified at this time. Screenin:09 Abuse screen: Denies threats or abuse. Nutritional screening: No deficits noted. jd3 Tuberculosis screening: No symptoms or risk factors identified. Fall Risk IV access (20 points). Ambulatory Aid- None/Bed Rest/Nurse Assist (0 pts). Gait- Normal/Bed Rest/Wheelchair (0 pts) Mental Status- Oriented to own ability (0 pts). Total Magdaleno Fall Scale indicates No Risk (0-24 pts). Assessment: 02:06 General: Appears uncomfortable, Behavior is calm, cooperative, appropriate for age. jd3 Pain: Complains of pain in head Quality of pain is described as aching. Neuro: Level of Consciousness is awake, alert, obeys commands, Oriented to person, place, time, situation, Moves all extremities. Full function Gait is steady, Speech is normal. Cardiovascular: Capillary refill < 3 seconds Patient's skin is warm and dry. Respiratory: Airway is patent Respiratory effort is even, unlabored, Respiratory pattern is regular, symmetrical. GI: No signs and/or symptoms were reported involving the gastrointestinal system. : No signs and/or symptoms were reported regarding the genitourinary system. EENT: No signs and/or symptoms were reported regarding the EENT system. Derm: Skin is intact, Skin is dry, Skin is normal, Skin temperature is warm. Musculoskeletal: Circulation, motion, and sensation intact. Range of motion: intact in all extremities. 02:56 Reassessment: Patient appears in no apparent distress at this time. No changes from jd3 previously documented assessment. Patient and/or family updated on plan of care and expected duration. Pain level reassessed. Patient is alert, oriented x 3, equal unlabored respirations, skin warm/dry/pink. 03:41 Reassessment: Patient appears in no apparent distress at this time. No changes from jd3 previously documented assessment. Patient and/or family updated on plan of care and expected duration. Pain level reassessed. Patient is alert, oriented x 3, equal unlabored respirations, skin warm/dry/pink. 04:53 Reassessment: Patient appears in no apparent distress at this time. No changes from jd3 previously documented assessment. Patient and/or family updated on plan of care and expected duration. Pain level reassessed. Patient is alert, oriented x 3, equal unlabored respirations, skin warm/dry/pink. 06:05 Reassessment: Patient appears in no apparent distress at this time. Patient and/or jd3 family updated on plan of care and expected duration. Pain level reassessed. Patient is alert, oriented x 3, equal unlabored respirations, skin warm/dry/pink. Patient states feeling better. Vital Signs: 01:18 BP 114 / 56; Pulse 62; Resp 16 S; Temp 98.2(O); Pulse Ox 98% on R/A; Weight 61.23 kg bb (R); Height 5 ft. 4 in. (162.56 cm) (R); Pain 8/10; 02:11 BP 100 / 67; Pulse 56; Resp 17 S; Pulse Ox 100% on R/A; jd3 02:44 BP 100 / 67 LA Supine (auto/reg); Pulse 57 MON; Resp 16 S; Pulse Ox 100% on R/A; Pain ds4 6/10; 02:56 BP 100 / 68; Pulse 56; Resp 15 S; Pulse Ox 99% on R/A; jd3 03:41 BP 98 / 68; Pulse 55; Resp 16 S; Pulse Ox 100% on R/A; jd3 04:53 BP 104 / 62; Pulse 66; Resp 16 S; Pulse Ox 100% on R/A; jd3 05:45 BP 95 / 72; Pulse 57; Resp 16 S; Pulse Ox 100% on R/A; jd3 01:18 Body Mass Index 23.17 (61.23 kg, 162.56 cm) ED Course: 00:53 Patient arrived in ED. do 00:54 Efren Greenberg, is Private Physician. do 01:11 Triage completed. bb 01:18 Arm band placed on Patient placed in an exam room, on a stretcher, on pulse oximetry. Family accompanied patient. 01:19 Guillaume Singer MD is Attending Physician. pkl 01:43 Inserted saline lock: 20 gauge in right antecubital area, using aseptic technique. ds4 Blood collected. 01:45 Bandar Dominique RN is Primary Nurse. jd3 01:52 Chem 7 Sent. ds4 01:53 CBC with Diff Sent. ds4 02:08 Patient has correct armband on for positive identification. Bed in low position. Call jd3 light in reach. Side rails up X 1. Adult w/ patient. 04:[address] via wheelchair. kw1 04:23 CT Head Brain wo Cont In Process Unspecified. EDMS 04:45 CT Chest For PE Angio In Process Unspecified. EDMS 04:45 CT completed. Patient tolerated procedure well. Patient moved back from CT. kw1 06:05 No provider procedures requiring assistance completed. IV discontinued, intact, jd3 bleeding controlled, No redness/swelling at site. Pressure dressing applied. Administered Medications: 01:49 Drug: NS 0.9% 1000 ml Route: IV; Rate: 125 ml/hr; Site: right antecubital; tl2 06:06 Follow up: Response: No adverse reaction; IV Status: Order to discontinue infusion jd3 01:50 Drug: morphine 4 mg Route: IVP; Site: right antecubital; tl2 02:30 Follow up: Response: No adverse reaction; Pain is decreased tl2 01:50 Drug: Zofran 4 mg Route: IVP; Site: right antecubital; tl2 05:36 Follow up: Response: No adverse reaction tl2 05:35 Drug: morphine 4 mg Route: IVP; Site: right antecubital; tl2 06:05 Follow up: Response: No adverse reaction jd3 05:35 Drug: NS 0.9% 250 ml Route: IV; Rate: bolus; Site: right antecubital; tl2 06:06 Follow up: Response: No adverse reaction; IV Status: Completed infusion; IV Intake: jd3 250ml Intake: 06:06 IV: 250ml; Total: 250ml. jd3 Outcome: 05:33 Discharge ordered by . pkviktor 06:05 Discharged to home ambulatory, with family. jd3 06:05 Condition: stable 06:05 Discharge instructions given to patient, family, Instructed on discharge instructions, follow up and referral plans. medication usage, Demonstrated understanding of instructions, follow-up care, medications, Prescriptions given X 2. 06:06 Patient left the ED. jd3 Signatures: Dispatcher [employer] EDMS Guillaume Singer MD MD pkl Yue Chavez RN RN Reymundo Herring ds4 Alyssa Rolon Taylor, RN RN tl2 Bandar Dominique RN RN jd3 Sangeetha Dai kw1 Corrections: (The following items were deleted from the chart) 06:08 06:07 BP 95 / 72; Pulse 57bpm; Resp 16bpm; Spontaneous; Pulse Ox 100% RA; jd3 jd3
--- NOTE | 2018-03-13 05:34 | EDPHYS ---
Physician Documentation [facility] Name: Sangeetha Olivares Age: 32 yrs Sex: Female : 1985 Arrival Date: 03/13/2018 Time: 00:53 Bed 17 Private MD: Efren Greenberg ED Physician Guillaume Singer HPI: 03/13 01:31 This 32 yrs old Female presents to ER via Ambulatory with complaints of pkl Headache, Shunt in brain. 01:31 The patient complains of pain to the top of head and forehead. The patient describes pkl the headache as constant. Onset: The symptoms/episode began/occurred today. Associated signs and symptoms: Pertinent positives: blurred vision, chest pain. S/P hysterectomy 3 days ago. 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 - Social history:: Smoking status: Patient/guardian denies using tobacco, Patient/guardian denies using alcohol, street drugs. - Ebola Screening: : No symptoms or risks identified at this time. ROS: 01:31 ENT: Negative for injury, pain, and discharge. pkl 01:31 Eyes: Positive for blurry vision. 01:31 Neck: Negative for stiffness. 01:31 Cardiovascular: Positive for chest pain. 01:31 Respiratory: Negative for shortness of breath. 01:31 Abdomen/GI: Positive for nausea. 01:31 Back: Negative for acute changes. 01:31 : Negative for urinary symptoms. 01:31 MS/extremity: Negative for acute changes. 01:31 Skin: Negative for rash. 01:31 Neuro: Negative for altered mental status. Exam: 01:31 Head/Face: Normocephalic, atraumatic. Eyes: Pupils equal round and reactive to light, pkl extra-ocular motions intact. Lids and lashes normal. Conjunctiva and sclera are non-icteric and not injected. Cornea within normal limits. Periorbital areas with no swelling, redness, or edema. ENT: Nares patent. No nasal discharge, no septal abnormalities noted. Tympanic membranes are normal and external auditory canals are clear. Oropharynx with no redness, swelling, or masses, exudates, or evidence of obstruction, uvula midline. Mucous membranes moist. Neck: Trachea midline, no thyromegaly or masses palpated, and no cervical lymphadenopathy. Supple, full range of motion without nuchal rigidity, or vertebral point tenderness. No Meningismus. Chest/axilla: Normal chest wall appearance and motion. Nontender with no deformity. No lesions are appreciated. Cardiovascular: Regular rate and rhythm with a normal S1 and S2. No gallops, murmurs, or rubs. Normal PMI, no JVD. No pulse deficits. Respiratory: Lungs have equal breath sounds bilaterally, clear to auscultation and percussion. No rales, rhonchi or wheezes noted. No increased work of breathing, no retractions or nasal flaring. Abdomen/GI: Soft, non-tender, with normal bowel sounds. No distension or tympany. No guarding or rebound. No evidence of tenderness throughout. Back: No spinal tenderness. No costovertebral tenderness. Full range of motion. Skin: Warm, dry with normal turgor. Normal color with no rashes, no lesions, and no evidence of cellulitis. MS/ Extremity: Pulses equal, no cyanosis. Neurovascular intact. Full, normal range of motion. Neuro: Awake and alert, GCS 15, oriented to person, place, time, and situation. Cranial nerves II-XII grossly intact. Motor strength 5/5 in all extremities. Sensory grossly intact. Cerebellar exam normal. Normal gait. Vital Signs: 01:18 BP 114 / 56; Pulse 62; Resp 16 S; Temp 98.2(O); Pulse Ox 98% on R/A; Weight 61.23 kg bb (R); Height 5 ft. 4 in. (162.56 cm) (R); Pain 8/10; 02:11 BP 100 / 67; Pulse 56; Resp 17 S; Pulse Ox 100% on R/A; jd3 02:44 BP 100 / 67 LA Supine (auto/reg); Pulse 57 MON; Resp 16 S; Pulse Ox 100% on R/A; Pain ds4 6/10; 02:56 BP 100 / 68; Pulse 56; Resp 15 S; Pulse Ox 99% on R/A; jd3 03:41 BP 98 / 68; Pulse 55; Resp 16 S; Pulse Ox 100% on R/A; jd3 04:53 BP 104 / 62; Pulse 66; Resp 16 S; Pulse Ox 100% on R/A; jd3 05:45 BP 95 / 72; Pulse 57; Resp 16 S; Pulse Ox 100% on R/A; jd3 01:18 Body Mass Index 23.17 (61.23 kg, 162.56 cm) bb MDM: 01:19 Patient medically screened. pkl 05:31 Data reviewed: vital signs, nurses notes, radiologic studies, CT scan. pkl 03/13 01:29 Order name: CBC with Diff; Complete Time: 02:08 pkl 03/13 01:29 Order name: Chem 7; Complete Time: 02:19 pkl 03/13 02:21 Order name: CT Head Brain wo Cont pkl 03/13 02:21 Order name: CT Chest For PE Angio pkl 03/13 01:44 Order name: IV Start; Complete Time: 01:44 ds4 Administered Medications: 01:49 Drug: NS 0.9% 1000 ml Route: IV; Rate: 125 ml/hr; Site: right antecubital; tl2 06:06 Follow up: Response: No adverse reaction; IV Status: Order to discontinue infusion jd3 01:50 Drug: morphine 4 mg Route: IVP; Site: right antecubital; tl2 02:30 Follow up: Response: No adverse reaction; Pain is decreased tl2 01:50 Drug: Zofran 4 mg Route: IVP; Site: right antecubital; tl2 05:36 Follow up: Response: No adverse reaction tl2 05:35 Drug: morphine 4 mg Route: IVP; Site: right antecubital; tl2 06:05 Follow up: Response: No adverse reaction jd3 05:35 Drug: NS 0.9% 250 ml Route: IV; Rate: bolus; Site: right antecubital; tl2 06:06 Follow up: Response: No adverse reaction; IV Status: Completed infusion; IV Intake: jd3 250ml Disposition: 03/13/18 05:33 Discharged to Home. Impression: Severe headache. Chest pain. S/P Hysterectomy. - Condition is Stable. - Prescriptions for Ultram 50 mg Oral Tablet - take 1 tablet by ORAL route every 8 hours As needed; 20 tablet. Valium 5 mg Oral Tablet - take 1 tablet by ORAL route 1-2 times daily As needed; 10 tablet. - Medication Reconciliation Form, Thank You Letter, Antibiotic Education, Prescription Opioid Use form. - Follow up: Private Physician; When: 2 - 3 days; Reason: Re-evaluation by your physician. - Problem is new. - Symptoms have improved. Signatures: Dispatcher [employer] EDMS Guillaume Singer MD MD pkl Yue Chavez RN RN bb Reymundo Young ds4 Ameena Glaser RN RN tl2 Bandar Dominique RN RN jd3 Corrections: (The following items were deleted from the chart) 06:06 05:33 03/13/2018 05:33 Discharged to Home. Impression: Severe headache. Chest pain. S/P jd3 Hysterectomy. Condition is Stable. Forms are Medication Reconciliation Form, Thank You Letter, Antibiotic Education, Prescription Opioid Use. Follow up: Private Physician; When: 2 - 3 days; Reason: Re-evaluation by your physician. Problem is new. Symptoms have improved. pkl
[2018-03-13] MEDS ORDERED: NA CHLORIDE 0.9% 250 ML ONE (05:38)
[2018-03-13 06:11] VITALS: TEMP 98.2
[2018-03-13 06:16] VITALS: O2SAT 100
[2018-03-13 06:17] VITALS: BP 104/62
--- NOTE | 2018-03-13 11:22 | RAD REPORT ---
EXAM DESCRIPTION: CT - Head Brain Wo Cont - 03/13/2018 6:51 am CLINICAL HISTORY: HEADACHE COMPARISON: Ct Stroke Brain Wo Cont dated 03/22/2016 TECHNIQUE: All CT scans are performed using dose optimization technique as appropriate and may inclu de automated exposure control or mA/KV adjustment according to patient size. FINDINGS: No intracranial hemorrhage, hydrocephalus or extra-axial fluid collection.Posterior fossa shunt tube is present on the right within a 4 x 2 cm right posterior fossa arachnoid cyst. Low lying cerebellar tonsils again noted. The paranasal sinuses and mastoids are clear. The calvarium is intact. IMPRESSION: No acute intracranial abnormality.
--- NOTE | 2018-03-13 11:25 | RAD REPORT ---
EXAM DESCRIPTION: CT - Chest For Pe Angio - 03/13/2018 6:54 am CLINICAL HISTORY: Chest pain. CHEST PAIN COMPARISON: No comparisons TECHNIQUE: CT angiogram of the pulmonary arteries was performed with MIP. All CT scans are performed using dose optimization technique as appropriate and may include automated exposure control or mA/KV adjustment according to patient size. FINDINGS: No evidence of pulmonary thromboembolism. No acute aortic finding demonstrated. Mild linear subsegmental atelectasis in both posterior lung bases. Small bilateral pleural effusions. Catheter tubing is present in the anterior chest. Pneumoperitoneum is noted from recent surgery. IMPRESSION: No evidence of pulmonary thromboembolism.
== END 2018-03-13 06:06 | disposition home or self-care (01) ==
LOC: ER 00:52
DX: R07.9 Chest pain, unspecified (principal); Z90.710 Acquired absence of both cervix and uterus; Z88.5 Allergy status to narcotic agent; Z98.2 Presence of cerebrospinal fluid drainage device
CPT/HCPCS: 36415; 70450; 71275; 80048; 85025; 96361; 96365; 96375; 99284; J2405; J7030; Q9967